=== PATIENT | male | born 1990 | race Caucasian/White ===

== ENCOUNTER 2022-05-23 11:22 | Emergency (ER) | payer OTHER, SELFPAY ==
[2022-05-23 11:22] VITALS: BP 146/86; PULSE 110; RESP 20; TEMP 36.6; O2SAT 98; BMI 39.9
--- NOTE | 2022-05-23 11:34 | PC.NURSE ---
PT SITTING ON SIDE OF STRETCHER, FAMILY AT BEDSIDE. DENIES NEEDS AT THIS TIME
--- NOTE | 2022-05-23 11:40 | PC.NURSE ---
ED MD AT BEDSIDE TO EVALUATE PT
--- NOTE | 2022-05-23 11:44 | PC.NURSE ---
SHARATH ZEPEDA CONSULTING AT THIS TIME
--- NOTE | 2022-05-23 11:47 | XR_ITS ---
FINAL REPORT CLINICAL HISTORY: dog bite FINDINGS: AP, lateral and oblique views of the right hand were obtained. There is no prior exam for comparison. There is no acute fracture or dislocation. The joint spaces are preserved. No foreign body is identified. There is a diffuse soft tissue edema, favor cellulitis. IMPRESSION: No acute osseous abnormality of the right hand. Few soft tissue edema, favor cellulitis. Reviewed, Interpreted and Dictated by Yelena Lawler MD Transcribed by Мария Adamson Authenticated and [facility]
--- NOTE | 2022-05-23 12:01 | PC.NURSE ---
0705 ED MD AT BEDSIDE, UPDATING PT AND FAMILY ON POC
--- NOTE | 2022-05-23 12:03 | PC.NURSE ---
PT TO XR
--- NOTE | 2022-05-23 12:08 | PC.NURSE ---
1208, RETURNED FROM XR
--- NOTE | 2022-05-23 12:20 | PC.NURSE ---
1220 PT UPDATED ON POC, ABX STARTED. PT WITHOUT NEEDS AT THIS TIME
[2022-05-23 12:26] LABS: Chloride 105 mmol/L (98-107); Potassium 4.5 mmoL/L (3.5-5.1); Sodium 139 mmol/L (136-145)
[2022-05-23 12:27] LABS: Basophils # 0.1 K/mm3 (0-0.2); Basophils % 0.5 % (0.1-2.0); Eosinophils # 0.2 K/mm3 (0.0-0.4); Eosinophils % 1.5 % (0.1-12.0); Lymphocytes # 2.4 K/mm3 (0.7-4.5); Lymphocytes % 23.9 % (10-50); Mean Corpuscular HGB Conc 35.4 g/dL (31.8-35.4); Mean Corpuscular Hemoglobin 31.8 pg (27.0-31.2); Mean Corpuscular Volume 89.8 fl (80-94); Mean Platelet Volume 7.5 fl (7.4-10.4); Monocytes % 10.6 % (1.7-9.3); Neutrophils # 6.3 K/mm3 (1.8-7.8); Neutrophils % 63.5 % (37.0-80.0); Platelet Count 269 K/mm3 (142-424); Red Blood Count 5.35 M/mm3 (4.60-6.20); Red Cell Distribution Width 13.5 % (11.5-17.5); White Blood Count 9.8 K/mm3 (4.8-10.8)
[2022-05-23 12:29] LABS: Anion Gap 9.5 mEq/L (5-15); Blood Urea Nitrogen 10 mg/dl (9-20); Calcium 8.8 mg/dl (8.4-10.2); Carbon Dioxide 29 mmol/L (22.0-30.0); Creatinine Clearance Estimated 167 mL/min (50-200); Estimated Glomerular Filt Rate 78 ml/min (>60); GFR (African American) 94 ML/MIN (>60); Glucose 116 mg/dl (74-100)
--- NOTE | 2022-05-23 12:30 | PC.NURSE ---
CONSENT SIGNED FOR TDDANILO
--- NOTE | 2022-05-23 12:33 | PC.NURSE ---
dog bite form faxed to [facility] at this time.
--- NOTE | 2022-05-23 12:41 | PC.NURSE ---
rounded on pt, sitting on bed with no needs at this time, family at bs
[2022-05-23 13:01] VITALS: BP 132/91; PULSE 83; O2SAT 96
[2022-05-23 13:03] LABS: Erythrocyte Sedimentation Rate 6 mm/hr (0-15)
--- NOTE | 2022-05-23 13:03 | PC.NURSE ---
called [facility] for ER Doctor John,talked to Jayson, She advised us to powershare his images. and they would call us back as soon as they looked at them
--- NOTE | 2022-05-23 13:05 | PC.NURSE ---
called radiology and asked them to powershare images to [facility]
[2022-05-23 13:30] VITALS: BP 127/91; PULSE 86; O2SAT 99
--- NOTE | 2022-05-23 13:30 | PC.NURSE ---
ROUNDED ON PT, TOLERATING IV ABX, FAMILY AT BEDSIDE. DENIES NEEDS AT THIS TIME
--- NOTE | 2022-05-23 13:39 | PC.NURSE ---
HARRY ZEPEDA speaking with dr. calhoun with hand service at at this time
--- NOTE | 2022-05-23 13:44 | PC.NURSE ---
ER speaking with ER attending at [facility] at this time
--- NOTE | 2022-05-23 13:45 | PC.NURSE ---
ED MD AT BEDSIDE TO UPDATE PT ON POC, TRANSFER TO [facility] FOR FURTHER CARE
--- NOTE | 2022-05-23 13:48 | HMH.EDANIB ---
ED Disposition Clinical Impression: Bite by animal, Infectious tenosynovitis Disposition: Xfer Short-Term Hosp Condition on Discharge: Good Instructions: Animal Bites Additional Instructions: Go directly to the [facility] emergency department for further evaluation Referrals: Provider,Referral, [Primary Care Provider] - Forms: Transfer Record - ED - Critical Care Critical Care Time: No Attestation: On 05/23/22, the high probability of a clinically significant, sudden or life threatening deterioration of the following system(s) required my full and direct attention, intervention and personal management. The time I documented below is in addition to time spent performing reported procedures but includes the following listed in this critical care notation. Medical Decision Making - Medical Records Medical records reviewed: Yes: I reviewed the patient's medical records. - Brigido Inquiry Pt receiving controlled substance: No Brigido was queried for this patient: No Vital Signs: 05/23/22 11:22 05/23/22 13:01 05/23/22 13:30 Temperature 97.9 F Temperature Source Oral Pulse Rate 83 86 Pulse Rate [Radial] 110 H Respiratory Rate 20 Blood Pressure 132/91 H 127/91 H Blood Pressure [Right Arm] 146/86 H Blood Pressure Mean 104 103 Blood Pressure Mean [Right Arm] 106 Blood Pressure Source [Right Arm] Automatic Cuff Blood Pressure Position [Right Arm] Sitting 02 Sat by Pulse Oximetry 98 96 99 Oxygen Delivery Method Room Air 05/23/22 14:00 Temperature Temperature Source Pulse Rate 82 Pulse Rate [Radial] Respiratory Rate Blood Pressure 114/84 Blood Pressure [Right Arm] Blood Pressure Mean 94 Blood Pressure Mean [Right Arm] Blood Pressure Source [Right Arm] Blood Pressure Position [Right Arm] 02 Sat by Pulse Oximetry Oxygen Delivery Method - Lab Data Lab Results 05/23/22 11:05: WBC 9.8, RBC 5.35, Hgb 17.0, Hct 48.0, MCV 89.8, MCH 31.8 H, MCHC 35.4, RDW 13.5, Plt Count 269, MPV 7.5, Neut % (Auto) 63.5, Lymph % (Auto) 23.9, [place] % (Auto) 10.6 H, Eos % (Auto) 1.5, Baso % (Auto) 0.5, Neut # (Auto) 6.3, Lymph # (Auto) 2.4, [place] # (Auto) 1.0, Eos # (Auto) 0.2, Baso # (Auto) 0.1, ESR 6 05/23/22 11:05: C-Reactive Protein 47.0 H 05/23/22 11:05: Sodium 139, Potassium 4.5, Chloride 105, Carbon Dioxide 29, Anion Gap 9.5, BUN 10, Creatinine 1.10, Estimated Creat Clear 167, Estimated GFR 78, Est GFR ( Amer) 94, Glucose 116 H, Calcium 8.8 Result diagrams: 05/23/22 11:05 05/23/22 11:05 Orders (Tests/Meds): ED MEDICATIONS Generic Name Dose Route Start Last Admin Trade Name Freq PRN Reason Stop Dose Admin Ampicillin Sodium/Sulbactam 100 mls @ 200 mls/hr 05/23/22 12:00 05/23/22 12:20 Sodium 3 gm/ Sodium Chloride IV 06/06/22 11:59 200 mls/hr Q6H KALPESH Administration Sodium Chloride 10 ml 05/23/22 12:00 Sodium Chloride 0.9% 10ml Flush Syringe IV 06/22/22 11:59 NEEDED PRN Maintain IV Site Discontinued Medications Generic Name Dose Route Start Last Admin Trade Name Freq PRN Reason Stop Dose Admin Vancomycin HCl 2,500 mg/ 250 mls @ 125 mls/hr 05/23/22 13:00 05/23/22 12:54 Sodium Chloride IV 05/23/22 14:59 125 mls/hr ONCE ONE Administration Tetanus/Reduced Diphtheria/Acell Pertussis 0.5 ml 05/23/22 11:49 05/23/22 12:50 Tet/Diphth/Pert-Adult 0.5ml Syringe IM 05/23/22 11:50 0.5 ml .ONCE ONE Administration Medical Decision Narrative: And reviewed is a 32-year-old male who presents with a dog bite to the right hand. Hemodynamically stable and nontoxic-appearing. His physical exam is pertinent for substantial erythema and swelling to the dorsal aspect of his right hand. He does have also pain with passive flexion as well as tenderness over his second finger. These are all concerning findings of infectious tenosynovitis. He was started on vancomycin and Unasyn for antibiotic coverage. An x-ray was performed which only sh
--- NOTE | 2022-05-23 13:51 | PC.NURSE ---
pt accepted [facility] , per ER pt can transport via private vehicle after antibiotics are finished
[2022-05-23 14:00] VITALS: BP 114/84; PULSE 82
--- NOTE | 2022-05-23 15:33 | PC.NURSE ---
report called to NAZ wilcox at [facility] at this time.
--- NOTE | 2022-05-23 16:00 | PC.NURSE ---
telfa and coban dressing placed on R hand
[2022-05-23 16:32] VITALS: BP 114/84; PULSE 82; RESP 20; TEMP 36.6; O2SAT 98
== END 2022-05-23 16:30 | disposition short-term general hospital (02) ==
PROVIDERS: Emergency Provider Student in an Organized Health Care Education/Training Program
DX: M65.141 Other infective (teno)synovitis, right hand (principal); S61.451A Open bite of right hand, initial encounter; W54.0XXA Bitten by dog, initial encounter; Z23 Encounter for immunization
CPT/HCPCS: 73130; 80048; 85025; 85651; 86140; 90471; 90715; 96365; 96366; 96367; 99284; J3370

== ENCOUNTER 2025-02-28 18:27 | Inpatient (IN) | payer OTHER, SELFPAY ==
[2025-02-28] VITALS (14 sets, daily range): BP systolic 133–167; BP diastolic 73–95; PULSE 85–114; RESP 16–32; TEMP 36.2–38; O2SAT 93–98; BMI 40.6; BMI 43.4
--- NOTE | 2025-02-28 18:40 | ED_ITS ---
<Statement entered by Salima Crespo MD - 02/28/25 19:40> I was consulted by the YA, and we discussed the complexity of the problems being addressed. I approved the treatment and management plan for this patient's care in the emergency department, thus performing a substantive portion of the medical decision making. Salima Crespo MD, KOMAL, FACEP Discharge Plan Disposition Chief Complaint: Abdominal Pain Referrals Follow up/Referrals: Provider,Referral, [Primary Care Provider] - See instructions Instructions Patient Instructions: DI for Acute Abdominal Pain Print Language Print Language: Portuguese Discharge ED Provider: Salima Crespo General Adult HPI General Chief complaint: Abdominal Pain Stated complaint: Right side abdominal pain,nausea Time Seen by Provider: 02/28/25 18:40 History of Present Illness HPI narrative: Patient presents for evaluation of acute abdominal pain. Patient states that he had acute onset of abdominal pain located centrally that started yesterday while at work. It is not abated and approximately 1 hour prior to presentation he felt like something cut him across the abdomen. He reports nausea vomiting inability to tolerate oral intake as passing stool and flatus denies chest pain shortness of breath hemoptysis hematochezia melena hematemesis hematuria. He has never had any abdominal surgeries. Related Data Allergies Allergy/AdvReac Type Severity Reaction Status Date / Time No Known Allergies Allergy Verified 05/23/22 11:58 [facility] Disclaimer: The information contained in this section may have been updated after the patient was seen, as this information can be updated by other users. Social History Smoking Status: Current every day smoker alcohol intake: never current occupational status: employed Travel in the last 8 weeks?: None Other Medical History Have you received the Flu Vaccine for this season: No Have you received the Pneumonia Vaccine: No ROS Obtained: Yes Systems reviewed as appropriate & no additional complaints except as documented Physical Exam General General appearance: alert Respiratory Respiratory exam: Present normal lung sounds bilaterally Cardiovascular Cardiovascular exam: Present regular rate Neurological Exam Neurological exam: Present alert and oriented X3 Medical Decision Making Medical Records Medical records reviewed: Yes I reviewed the patient's medical records. Screening: Per USPSTF and CDC recommendations, given the prevalence of disease in our region, it is our hospital?s policy to screen for HIV and viral Hepatitis for all patients aged 18 and over and those with ongoing risk factors. Brigido Inquiry Pt receiving controlled substance: No Vital Signs: 02/28/25 18:40 Temperature 98.1 F Temperature Source Oral Pulse Rate [Radial] 85 Respiratory Rate 18 Blood Pressure [Right Arm] 133/73 Blood Pressure Mean [Right Arm] 93 Blood Pressure Source [Right Arm] Automatic Cuff Blood Pressure Position [Right Arm] Sitting 02 Sat by Pulse Oximetry 98 Oxygen Delivery Method Room Air Lab Data Lab results reviewed: Yes I reviewed the patient's lab results. Lab Results 02/28/25 18:44: WBC 20.3 H*, RBC 5.13, Hgb 15.4, Hct 44.5, MCV 86.7, MCH 30.0, MCHC 34.6, RDW 15.0, Plt Count 313, MPV 9.6, Neut % (Auto) 74.9, Lymph % (Auto) 13.7, [place] % (Auto) 9.7 H, Eos % (Auto) 0.9, Baso % (Auto) 0.3, Neut # (Auto) 15.2 H, Lymph # (Auto) 2.8, [place] # (Auto) 2.0 H, Eos # (Auto) 0.2, Baso # (Auto) 0.1, Total Counted 100, Neutrophils % (Manual) 75, Lymphocytes % (Manual) 16, Monocytes % (Manual) 7, Eosinophils % (Manual) 2, Platelet Estimate Normal, RBC Morphology Normal, PT 10.7, INR 0.95, Sodium 137, Potassium 4.5, Chloride 108 H, Carbon Dioxide 24, Anion Gap 9.5, BUN 17, Creatinine 1.10, Estimated Creat Clear 167, Estimated GFR 77, Est GFR ( Amer) 93, Glucose 123 H, Lactate 1.0, Calcium 9.0, Magnesium 2.0, Total Bilirubin 0.7, AST 30, ALT 38, Alkaline Phosphatase 64, Total Protein 7.4, Albumin 4.2, Globulin 3.2, Albumin/Globulin Ratio 1.3, Lipase 97, Procalcitonin 0.088 02/28/25 18:44 02/28/25 18:44 Orders (Tests/Meds): ED MEDICATIONS Generic Name Dose Route Start Last Admin Trade Name Freq PRN Reason Stop Dose Admin Sodium Chloride 1,000 mls @ 999 mls/hr 02/28/25 18:44 02/28/25 18:48 Sod Chlor 0.9% 1000ml Bag IV 02/28/25 19:44 999 mls/hr .Q1H1M ONE Administration Piperacillin Sod/Tazobactam 50 mls @ 100 mls/hr 02/28/25 19:32 Sod 3.375 gm/ Sodium Chloride IV 02/28/25 20:01 ONCE ONE Discontinued Medications Generic Name Dose Route Start Last Admin Trade Name Leno PRN Reason Stop Dose Admin Acetaminophen 1,000 mg 02/28/25 18:44 02/28/25 19:18 Acetaminophen 1,000mg/100ml Vial IV 02/28/25 18:45 1,000 mg ONCE ONE Administration Hydromorphone HCl 1 mg 02/28/25 18:44 02/28/25 18:48 Hydromorphone 2mg/Ml Syringe IV 02/28/25 18:45 1 mg ONCE ONE Administration Iopamidol 75 ml 02/28/25 18:59 02/28/25 19:02 Iopamidol-370 (76%);100ml Bottle IV 02/28/25 19:00 75 ml ONCE ONE Administration Ketorolac Tromethamine 15 mg 02/28/25 18:44 02/28/25 19:17 Ketorolac 30mg/Ml Vial IV 02/28/25 18:45 15 mg ONCE ONE Administration Ondansetron HCl 4 mg 02/28/25 18:44 02/28/25 18:47 Ondansetron 4mg/2ml Vial IV 02/28/25 18:45 4 mg ONCE ONE Administration Sodium Chloride 10 ml 02/28/25 18:59 02/28/25 19:02 Sodium Chloride 0.9% 10ml Syr (Rad Only) IV 02/28/25 19:00 10 ml ONCE ONE Administration ORDERS Category Date Time Status CT abdomen pelvis w con Stat Cat Scan 02/28/25 18:44 Taken CBC w/Auto Diff [Complete Blood Count Auto Diff] Stat Lab 02/28/25 18:44 Completed CMP [Comprehensive Metabolic Panel] Stat Lab 02/28/25 18:44 Completed HIV Combo Stat Lab 02/28/25 18:44 Received Hepatitis C Ab Qual. W/ RFX Stat Lab 02/28/25 18:44 Received INR [Prothrombin Time INR] Stat Lab 02/28/25 18:44 Completed Lactic Acid Stat Lab 02/28/25 18:44 Completed Lipase Stat Lab 02/28/25 18:44 Completed Magnesium Stat Lab 02/28/25 18:44 Completed Procalcitonin Stat Lab 02/28/25 18:44 Completed Blood Culture Stat Micro 02/28/25 19:11 Ordered Tissue Perfus/Sepsis Re-Eval Sepsis Re-Evaluation Performed: Yes Date Performed: 02/28/25 Time Performed: 19:09 Medical Decision Narrative: In summary patient is a 34-year-old male who presents to the emergency department for evaluation of acute abdominal pain. Patient is essentially hemodynamically stable with a blood pressure 133/73 pulse 85 normal sinus rhythm on the bedside monitor breathing 18 times a minute satting at 98% on room air upon arrival, afebrile currently at 98.1. Physical exam is remarkable for a well-nourished well-developed overweight 34-year-old gentleman who appears to be in a significant amount of pain. Physical exam is remarkable for exquisitely tender to palpation abdomen particularly on the right side to even light pressure. He is guarding. Left side is less tender and does not cause rebound tenderness on the contralateral side on palpation. Differential diagnosis includes acute abdomen with cholecystitis pancreatitis acute appendicitis bowel obstruction etc. Initial workup will be conducted with hematologic labs urinalysis blood cultures CT scan abdomen pelvis. Initial interventions include crystalloid bolus Toradol Tylenol Zofran. Initial workup reviewed by me shows that his white count is 20.3 H&H are normal absolute neutrophil count is 15.2, procalcitonin is 0.088 and my informal trepidation of CT scan abdomen pelvis shows foci of free air in the right abdomen underneath the rectus and a very thickened small bowel loop adjacent prior to radiology read. Please see final read for formal interpretation. Given this blood cultures were drawn and patient was started on Zosyn. I had interactive discussion with Dr. Weber of general surgery who is on his way into take the patient to the operating room. I also had interact discussion with hospital medicine letting him know the patient will be admitted postoperatively. Critical Care Critical Care Time Critical Care Time: Yes Attestation: On 02/28/25, the high probability of a clinically significant, sudden or life threatening deterioration of the following system(s) required my full and direct attention, intervention and personal management. The time I documented below is in addition to time spent performing reported procedures but includes the following listed in this critical care notation. Total Time Total Critical Care Time: 35
--- NOTE | 2025-02-28 18:40 | ECG_ITS ---
APPROVED REPORT Exam: Resting ECG HR:97 bpm ECG Measurements Heart Rate 97 AXES DE 163 P 48 QRSd 98 QRS 91 QT 312 T 47 QTc 367 Conclusion SINUS RHYTHM BORDERLINE RIGHT AXIS DEVIATION [QRS AXIS > 90] BORDERLINE ECG UNCONFIRMED REPORT Electronically signed by : Jordy Crespo, 02/28/2025 22:58:49
--- NOTE | 2025-02-28 18:44 | CT_ITS ---
PROCEDURE INFORMATION: Exam: CT Abdomen And Pelvis With Contrast Exam date and time: 02/28/2025 6:56 PM Age: 34 years old Clinical indication: Abdominal pain; Additional info: Acute abdominal pain TECHNIQUE: Imaging protocol: Computed tomography of the abdomen and pelvis with contrast. Radiation optimization: All CT scans at this facility use at least one of these dose optimization techniques: automated exposure control; mA and/or kV adjustment per patient size (includes targeted exams where dose is matched to clinical indication); or iterative reconstruction. Contrast material: ISOVUE; Contrast volume: 75 ml; Contrast route: IV; COMPARISON: No relevant prior studies available. FINDINGS: Diaphragm: Small to moderate-sized hiatal hernia. Liver: Normal. No mass. Gallbladder and biliary ducts: Normal. No calcified stones. No ductal dilation. Pancreas: Normal. No ductal dilation. Spleen: Normal. No splenomegaly. Adrenal glands: Normal. No mass. Kidneys and ureters: Normal. No hydronephrosis. Stomach and bowel: There is an outpouching of the small bowel in the right side of the abdomen example images 64 through 75 series 2. There is surrounding inflammation and free air. Dilated segments of small bowel in the left side of the abdomen most likely represent mild ileus. Appendix: Unremarkable appendix. Intraperitoneal space: Small amount of pneumoperitoneum. Vasculature: Unremarkable. No abdominal aortic aneurysm. Lymph nodes: Unremarkable. No enlarged lymph nodes. Urinary bladder: Unremarkable as visualized. Reproductive: Unremarkable as visualized. Bones/joints: Unremarkable. No acute fracture. Soft tissues: Unremarkable. IMPRESSION: 1. There is an outpouching of the small bowel in the right side of the abdomen example images 64 through 75 series 2. There is surrounding inflammation and free air. This is favored to be perforated acute Meckel's diverticulitis. No abscess. 2. THIS REPORT CONTAINS FINDINGS THAT MAY BE CRITICAL TO PATIENT CARE. The findings were verbally communicated via telephone conference with Dr. Crespo at 7:36 PM EDT on 02/28/2025. The findings were acknowledged and understood.
[2025-02-28] MEDS: ONDANSETRON 4MG/2ML VIAL 4 MG IV (18:47)
[2025-02-28] MEDS: HYDROMORPHONE 2MG/ML SYRINGE 1 MG IV (18:48)
[2025-02-28] MEDS: 0.9 % SODIUM CHLORIDE 1000ML 1,000 ML 999 ML IV (18:48)
[2025-02-28 18:54] LABS: Basophils # 0.1 K/mm3 (0-0.2); Basophils % 0.3 % (0.1-2.0); Eosinophils # 0.2 Kmm3 (0.0-0.4); Eosinophils % 0.9 % (0.1-12.0); Hematocrit 44.5 % (42.0-52.0); Hemoglobin 15.4 g/dL (14.1-18.0); Lymphocytes # 2.8 K/mm3 (0.7-4.5); Lymphocytes % 13.7 % (10-50); Mean Corpuscular HGB Conc 34.6 g/dL (31.8-35.4); Mean Corpuscular Volume 86.7 fl (80-94); Mean Platelet Volume 9.6 fl (7.4-10.4); Monocytes % 9.7 % (1.7-9.3); Neutrophils # 15.2 K/mm3 (1.8-7.8); Neutrophils % 74.9 % (37.0-80.0); Nucleated Red Blood Cells # 0 10^3/uL; Nucleated Red Blood Cells % 0 %; Platelet Count 313 K/mm3 (142-424); Red Blood Count 5.13 M/mm3 (4.60-6.20); Red Cell Distribution Width-SD 48.1 fL; White Blood Count 20.3 K/mm3 (4.8-10.8)
[2025-02-28 19:00] LABS: MANUAL DIFFERENTIAL MANUAL DIFFERENTIAL (MANUAL DIFF)
[2025-02-28 19:01] LABS: INR 0.95 (0.9-1.1); Prothrombin Time 10.7 seconds (10.1-12.5)
[2025-02-28 19:02] LABS: Alanine Aminotransferase 38 U/L (12-78); Albumin Level 4.2 g/dl (3.5-5.0); Albumin/Globulin Ratio 1.3 (1.1-1.8); Alkaline Phosphatase 64 U/L (38-126); Anion Gap 9.5 mEq/L (5-15); Aspartate Amino Transferase 30 U/L (17-59); Bilirubin,Total 0.7 mg/dl (0.2-1.3); Blood Urea Nitrogen 17 mg/dl (9-20); Carbon Dioxide 24 mmol/L (22.0-30.0); Chloride 108 mmol/L (98-107); Creatinine Clearance Estimated 167 mL/min (50-200); Estimated Glomerular Filt Rate 77 ml/min (>60); GFR (African American) 93 ML/MIN (>60); Globulin 3.2 g/dL (1.3-3.2); Glucose 123 mg/dl (74-100); Lipase 97 U/L (23-300); Potassium 4.5 mmoL/L (3.5-5.1); Sodium 137 mmol/L (136-145); Total Protein,Serum 7.4 g/dl (6.3-8.2)
[2025-02-28] MEDS: IOPAMIDOL-370 (76%);100ML BOTTLE 75 ML IV (19:02)
[2025-02-28] MEDS: SODIUM CHLORIDE 0.9% 10ML SYR (RAD ONLY) 10 ML IV (19:02)
[2025-02-28] MEDS: KETOROLAC 30MG/ML VIAL 15 MG IV (19:17)
[2025-02-28 19:18] LABS: Procalcitonin 0.088 ng/mL (0.0-2.0)
[2025-02-28] MEDS: ACETAMINOPHEN 1,000MG/100ML VIAL 1000 MG IV (19:18)
[2025-02-28 19:29] LABS: Eosinophils % 2 % (0-3); Lymphocytes % 16 % (10-50); Monocytes % 7 % (2-9); Neutrophils % 75 % (42-76); Platelet Estimate Normal; RBC Morphology Normal; Total Cells Counted 100
[2025-02-28] MEDS: PIPERACILLIN/TAZO 3.375 GM in 0.9 % SODIUM CHLORIDE 50 ML IV (19:34)
--- NOTE | 2025-02-28 19:52 | PC.NURSE ---
Dr Weber talking to pt about surgery
--- NOTE | 2025-02-28 19:53 | PC.NURSE ---
Sx team paged at [phone]. Taras returned call at 192. Umm returned call at [phone]. Corrine returned call at [phone].
[2025-02-28 20:01] LABS: HIV Combo NEGATIVE (Negative)
--- NOTE | 2025-02-28 20:08 | EXP.GEN.HP ---
HPI HPI HPI: This is a 34-year-old gentleman who presented to the emergency department with increasing abdominal pain. See HPI narrative and medical decision making forwarded below from emergency department evaluation. Forwarded from emergency department evaluation: HPI narrative: Patient presents for evaluation of acute abdominal pain. Patient states that he had acute onset of abdominal pain located centrally that started yesterday while at work. It is not abated and approximately 1 hour prior to presentation he felt like something cut him across the abdomen. He reports nausea vomiting inability to tolerate oral intake as passing stool and flatus denies chest pain shortness of breath hemoptysis hematochezia melena hematemesis hematuria. He has never had any abdominal surgeries. Medical Decision Narrative: In summary patient is a 34-year-old male who presents to the emergency department for evaluation of acute abdominal pain. Patient is essentially hemodynamically stable with a blood pressure 133/73 pulse 85 normal sinus rhythm on the bedside monitor breathing 18 times a minute satting at 98% on room air upon arrival, afebrile currently at 98.1. Physical exam is remarkable for a well-nourished well-developed overweight 34-year-old gentleman who appears to be in a significant amount of pain. Physical exam is remarkable for exquisitely tender to palpation abdomen particularly on the right side to even light pressure. He is guarding. Left side is less tender and does not cause rebound tenderness on the contralateral side on palpation. Differential diagnosis includes acute abdomen with cholecystitis pancreatitis acute appendicitis bowel obstruction etc. Initial workup will be conducted with hematologic labs urinalysis blood cultures CT scan abdomen pelvis. Initial interventions include crystalloid bolus Toradol Tylenol Zofran. Initial workup reviewed by me shows that his white count is 20.3 H&H are normal absolute neutrophil count is 15.2, procalcitonin is 0.088 and my informal trepidation of CT scan abdomen pelvis shows foci of free air in the right abdomen underneath the rectus and a very thickened small bowel loop adjacent prior to radiology read. Please see final read for formal interpretation. Given this blood cultures were drawn and patient was started on Zosyn. I had interactive discussion with Dr. Weber of general surgery who is on his way into take the patient to the operating room. I also had interact discussion with hospital medicine letting him know the patient will be admitted postoperatively. [facility] Disclaimer: The information contained in this section may have been updated after the patient was seen, as this information can be updated by other users. Medical History (Updated 02/28/25 @ 20:12 by Man Weber MD) Infectious tenosynovitis Social History (Updated 02/28/25 @ 19:34 by MONTSE Munroe) Smoking Status: Current every day smoker alcohol intake: never substance use type: denies use current occupational status: employed Travel in the last 8 weeks?: None Other Medical History Have you received the Flu Vaccine for this season: No Have you received the Pneumonia Vaccine: No Review of Systems Review of Systems Review of systems:: pertinent systems reviewed and negative unless documented below Constitutional Constitutional: Reports as per HPI ENT Ears, Nose, Mouth, and Throat: Denies dizziness *Cardiovascular Cardiovascular: Denies dyspnea *Respiratory Respiratory: Denies dyspnea *Gastrointestinal Gastrointestinal: Reports as per HPI *Neurologic Neurologic: Denies dizziness Meds Home Medications and Allergies New Prescriptions to Start Prescriptions: Allergies Allergy/AdvReac Type Severity Reaction Status Date / Time No Known Allergies Allergy Verified 05/23/22 11:58 Exam Data for Last 24 hours Vital signs and Labs for Last 24 Hours: Temp Pulse Resp BP Pulse Ox O2 Del Method 98.3 F 107 H 30 H 148/81 H 97 Room Air 02/28/25 20:02 02/28/25 20:02 02/28/25 20:02 02/28/25 20:02 02/28/25 19:41 02/28/25 20:02 Laboratory Results - last 24 hr 02/28/25 18:44: WBC 20.3 H*, RBC 5.13, Hgb 15.4, Hct 44.5, MCV 86.7, MCH 30.0, MCHC 34.6, RDW 15.0, Plt Count 313, MPV 9.6, Neut % (Auto) 74.9, Lymph % (Auto) 13.7, [place] % (Auto) 9.7 H, Eos % (Auto) 0.9, Baso % (Auto) 0.3, Neut # (Auto) 15.2 H, Lymph # (Auto) 2.8, [place] # (Auto) 2.0 H, Eos # (Auto) 0.2, Baso # (Auto) 0.1, Total Counted 100, Neutrophils % (Manual) 75, Lymphocytes % (Manual) 16, Monocytes % (Manual) 7, Eosinophils % (Manual) 2, Platelet Estimate Normal, RBC Morphology Normal, PT 10.7, INR 0.95, Sodium 137, Potassium 4.5, Chloride 108 H, Carbon Dioxide 24, Anion Gap 9.5, BUN 17, Creatinine 1.10, Estimated Creat Clear 167, Estimated GFR 77, Est GFR ( Amer) 93, Glucose 123 H, Lactate 1.0, Calcium 9.0, Magnesium 2.0, Total Bilirubin 0.7, AST 30, ALT 38, Alkaline Phosphatase 64, Total Protein 7.4, Albumin 4.2, Globulin 3.2, Albumin/Globulin Ratio 1.3, Lipase 97, Procalcitonin 0.088, HIV Ag/Ab Combo Qual Negative I & O for Last 24 hours: Intake & Output 02/26/25 02/27/25 02/28/25 03/01/25 11:59 11:59 11:59 11:59 Weight 275 lb Constitutional Constitutional: no acute distress *Routine HEENT Exam Head: Present normocephalic Eye: Present EOMI ENT: Present mucous membranes moist *Routine Neck Exam Neck: Present full ROM *Routine Respiratory Exam Respiratory: Absent respiratory distress *Routine Cardiovascular Exam Cardiovascular: Absent tachycardia *Routine Abdominal Exam Abdominal: Present tenderness and guarding *Routine Rectal Exam Rectal:: deferred *Routine Genitalia Exam Genitalia:: deferred *Routine Extremities Exam Extremities: Present full ROM *Routine Skin Exam Skin: Absent erythema *Routine Neurological Exam Neurological: Present alert Results Results Lab Results Last 24 Hours:: Laboratory Results - last 24 hr 02/28/25 18:44: WBC 20.3 H*, RBC 5.13, Hgb 15.4, Hct 44.5, MCV 86.7, MCH 30.0, MCHC 34.6, RDW 15.0, Plt Count 313, MPV 9.6, Neut % (Auto) 74.9, Lymph % (Auto) 13.7, [place] % (Auto) 9.7 H, Eos % (Auto) 0.9, Baso % (Auto) 0.3, Neut # (Auto) 15.2 H, Lymph # (Auto) 2.8, [place] # (Auto) 2.0 H, Eos # (Auto) 0.2, Baso # (Auto) 0.1, Total Counted 100, Neutrophils % (Manual) 75, Lymphocytes % (Manual) 16, Monocytes % (Manual) 7, Eosinophils % (Manual) 2, Platelet Estimate Normal, RBC Morphology Normal, PT 10.7, INR 0.95, Sodium 137, Potassium 4.5, Chloride 108 H, Carbon Dioxide 24, Anion Gap 9.5, BUN 17, Creatinine 1.10, Estimated Creat Clear 167, Estimated GFR 77, Est GFR ( Amer) 93, Glucose 123 H, Lactate 1.0, Calcium 9.0, Magnesium 2.0, Total Bilirubin 0.7, AST 30, ALT 38, Alkaline Phosphatase 64, Total Protein 7.4, Albumin 4.2, Globulin 3.2, Albumin/Globulin Ratio 1.3, Lipase 97, Procalcitonin 0.088, HIV Ag/Ab Combo Qual Negative CT scan - abdomen: report reviewed and image reviewed CT scan - pelvis: report reviewed and image reviewed Assessment and Plan *Assessment and plan (1) Intra-abdominal free air of unknown etiology: Problem Comment: Most likely small bowel perforation (Meckel's, etc.) Status: Acute Category: Medical Code(s): K66.8 - Other specified disorders of peritoneum (2) Acute abdomen: Status: Acute Category: Medical Code(s): R10.0 - Acute abdomen (3) Severe sepsis without septic shock: Status: Acute Category: Medical Code(s): A41.9 - Sepsis, unspecified organism; R65.20 - Severe sepsis without septic shock (4) BMI 40.0-44.9, adult: Status: Acute Category: Medical Code(s): Z68.41 - Body mass index [BMI] 40.0-44.9, adult Plan Continue current resuscitative measures as per initiated by emergency department He will be taken immediately to the operative suite for exploratory laparotomy/possible bowel resection I have discussed the risks and benefits including, but not limited to: Bleeding Infection Damage to surrounding tissue Inherent risks of sedation The patient agrees to proceed.
[2025-02-28 20:10] LABS: Hepatitis C Ab Qual. W/ RFX NEGATIVE (Negative)
--- NOTE | 2025-02-28 20:11 | P.PNANES_ITS ---
[facility] Disclaimer: The information contained in this section may have been updated after the patient was seen, as this information can be updated by other users. Social History (Updated 02/28/25 @ 19:34 by MONTSE Munroe) Smoking Status: Current every day smoker alcohol intake: never substance use type: denies use current occupational status: employed Travel in the last 8 weeks?: None [facility] Anesthesia Checklist Patient Identification Patient Identification: Arm Band Structural Data Admitted From: Home Planned Operative Procedure/s: Exploratory Laparotomy Consent for Planned Operative Procedure(s) Verified: Yes Verified Documents: Surgical Consent and History and Physical NPO Status Verified Time NPO: 16:30 (Liquids. Last solids 1300) Additional verifications Anesthesia Reactions: No Airway Assessment Mallampati Score:: Class II C-Spine Mobility Assessed: Yes TMJ Mobility Assessed: Yes Dentition: Good Dentition Anesthesia Plan Anesthesia Risk discussed: Yes Anesthesia Plan: Verified ASA Class: III (E) Anesthesia Type: General
[2025-02-28] MEDS: ERTAPENEM SODIUM 1 GM VIAL (20:20)
[2025-02-28] MEDS: 0.9 % SODIUM CHLORIDE 100 ML IV (20:20)
--- NOTE | 2025-02-28 22:31 | EXP.OP.NOTE ---
Date of procedure: 02/28/25 Pre-op Diagnosis:: Perforated hollow viscus Intra-abdominal free air Peritonitis Presumed perforated small bowel Meckel's diverticulum Post-op Diagnosis:: Perforated small bowel Meckel's diverticulum Procedure performed:: Exploratory laparotomy Partial small bowel resection with primary anastomosis Surgeon:: Man Weber MD INSTRUMENT ROOM TECHNICIAN:: Taras Ron Anesthesia: GETA Estimated blood loss (mL): 50 Operative findings:: Small bowel Meckel's diverticulum adhered to the right upper quadrant abdominal wall with perforation and surrounding drainage of succus Operative note:: After informed consent was obtained the patient was taken to the operating room and placed in the supine position. General anesthesia was induced and his abdomen was prepped and draped in a sterile fashion. An upper midline laparotomy incision was made. The abdomen was carefully entered with a combination of electrocautery, blunt dissection, and sharp dissection. Visual inspection and palpation confirmed a small bowel abnormality with tissue thickening and adherence to the anterior abdominal wall. The abnormality was brought into the operative field where confirmation of an obvious Meckel's diverticulum was noted. Surrounding succus was evacuated via suctioning. The small bowel/Meckel's diverticulum was carefully elevated. A transection site was made proximal and distal to the Meckel's diverticulum utilizing a linear stapler. The intervening mesentery was taken via the Enseal device. The small bowel/Meckel's diverticulum was passed off for pathologic evaluation. A side to side stapled anastomosis was completed utilizing the linear stapler. The common otomy was closed using a [place] stapler. The staple line was imbricated (including the crotch ). The mesenteric defect was closed with running Vicryl suture and the abdomen was thoroughly irrigated. No sign of injury or bleeding noted. No pockets of purulence noted. Fascia was closed with running #2 Novafil. Skin was then stapled and dressings were applied. The patient was transferred to recovery in stable condition. Condition: stable Disposition: PACU Specimens:: Small bowel/Meckel's diverticulum Complications:: No immediate
--- NOTE | 2025-02-28 22:46 | EXP.ANES.I ---
[facility] Anesthesia Record Part I Anesthesia Record I Intake, IV Amount: 2,300 Hydration: Adequate Estimated blood loss (mL): 50 Urine output (mL): 600 Blood Products used (#): none Blood Pressure: 156/81 SaO2: 93 Pulse Rate: 106 Airway Patency: Patent Respiratory Rate: 20 Temperature: 97.2 F Patient is:: Drowsy, Oral/Nasal airway and Stable Stable to PACU at:: 22:40
--- NOTE | 2025-02-28 23:06 | P.HP_ITS ---
<Statement entered by Jrody Burk MD - 03/01/25 08:07> Rounded on patient after nurse practitioner. Personally examined and interviewed patient. Agree with exam findings and care plan as documented. History of Present Illness *Admission Date: 02/28/25 *Reason for visit:: Abdominal pain *History of present illness: This is a 34-year-old male with past medical history of obesity and tobacco abuse who presents emergency department today with complaints of abdominal pain. He reports consistent abdominal pain that began today. States that it was generalized but significant to the right lower quadrant. He reports pain was consistent all day with acute worsening pain 1 hour prior to arrival. He reports nausea and vomiting with inability to tolerate oral intake. Denies any melena or bright red blood per rectum. Emergency Department notable for white blood cell count of 20. Stable vitals with low sinus tachycardia. CT imaging notable for outpouching of small bowel in the right side of the abdomen with inflammation and free air consistent with perforated acute Meckel's diverticulitis. Dr. Weber was consulted and patient was taken to the OR. He underwent exploratory laparotomy with small bowel resection with primary anastomosis. Postoperatively he is doing well NG tube in place, Juárez catheter in place. PATTERN FILER pump on board for pain management. Vital signs stable. [facility] Disclaimer: The information contained in this section may have been updated after the patient was seen, as this information can be updated by other users. Medical History (Updated 02/28/25 @ 23:30 by MARY Reyes) Infectious tenosynovitis Social History (Updated 02/28/25 @ 20:12 by Taras Velasquez CRNA) Smoking Status: Current every day smoker alcohol intake: never substance use type: denies use current occupational status: employed Travel in the last 8 weeks?: None Have you lived/traveled outside US in past 30 days?: No Contact w/someone who lives/traveled outside US past 30 days?: No Exposure to someone with infectious disease in past 14 days?: No Do you have a fever (greater than 100.4 F or 38 C)?: No Have you tested positive for COVID-19?: No Exposed to someone with COVID-19 in past 14 days?: No Do you have a sore throat?: No Do you have a cough?: No Do you have any weakness?: No Do you have any diarrhea?: No Are you experiencing any unusual bleeding?: No Do you have any muscle aches/pain?: No Do you have any abdominal pain?: Yes Are you experiencing loss of taste or smell?: No Other Medical History Have you received the Flu Vaccine for this season: No Have you received the Pneumonia Vaccine: No Review of Systems Review of Systems Review of systems:: pertinent systems reviewed and negative unless documented below Review of systems (narrative): Negative except for HPI ENT Ears, Nose, Mouth, and Throat: Denies dizziness *Neurologic Neurologic: Denies dizziness Meds Home Medications and Allergies New Prescriptions to Start Prescriptions: Allergies Allergy/AdvReac Type Severity Reaction Status Date / Time No Known Allergies Allergy Verified 05/23/22 11:58 Exam Data for Last 24 hours Vital signs and Labs for Last 24 Hours: Temp Pulse Resp BP Pulse Ox O2 Del Method 97.2 F L 106 H 20 156/81 H 97 Room Air 02/28/25 22:46 02/28/25 22:46 02/28/25 22:46 02/28/25 22:46 02/28/25 20:15 02/28/25 20:15 Laboratory Results - last 24 hr 02/28/25 18:44: WBC 20.3 H*, RBC 5.13, Hgb 15.4, Hct 44.5, MCV 86.7, MCH 30.0, MCHC 34.6, RDW 15.0, Plt Count 313, MPV 9.6, Neut % (Auto) 74.9, Lymph % (Auto) 13.7, [place] % (Auto) 9.7 H, Eos % (Auto) 0.9, Baso % (Auto) 0.3, Neut # (Auto) 15.2 H, Lymph # (Auto) 2.8, [place] # (Auto) 2.0 H, Eos # (Auto) 0.2, Baso # (Auto) 0.1, Total Counted 100, Neutrophils % (Manual) 75, Lymphocytes % (Manual) 16, Monocytes % (Manual) 7, Eosinophils % (Manual) 2, Platelet Estimate Normal, RBC Morphology Normal, PT 10.7, INR 0.95, Sodium 137, Potassium 4.5, Chloride 108 H, Carbon Dioxide 24, Anion Gap 9.5, BUN 17, Creatinine 1.10, Estimated Creat Clear 167, Estimated GFR 77, Est GFR ( Amer) 93, Glucose 123 H, Lactate 1.0, Calcium 9.0, Magnesium 2.0, Total Bilirubin 0.7, AST 30, ALT 38, Alkaline Phosphatase 64, Total Protein 7.4, Albumin 4.2, Globulin 3.2, Albumin/Globulin Ratio 1.3, Lipase 97, Procalcitonin 0.088, HCV Ab SHRUTI w/Rflx PCR Qn Negative, HIV Ag/Ab Combo Qual Negative I & O for Last 24 hours: Intake & Output 02/25/25 02/26/25 02/27/25 02/28/25 23:59 23:59 23:59 23:59 Intake Total 2300 / 2300 Balance 2300 / 2300 Weight 124.738 kg Constitutional Constitutional: no acute distress *Routine HEENT Exam Head: Present normocephalic Eye: Present EOMI and PERRL ENT: Present mucous membranes moist *Routine Neck Exam Neck: Present supple; Absent lymphadenopathy *Routine Respiratory Exam Respiratory: Present CTA bilaterally *Routine Cardiovascular Exam Cardiovascular: Present RRR *Routine Abdominal Exam Abdominal: Present tenderness (Generalized TTP), distended and surgical scars Comments: Ex lap incision, edges approximate NG tube in place *Routine Rectal Exam Rectal:: deferred *Routine Genitalia Exam Genitalia:: deferred *Routine Extremities Exam Extremities: Absent cyanosis, clubbing or edema *Routine Skin Exam Skin: Present warm; Absent rash *Routine Neurological Exam Neurological: Present alert and oriented X3 Assessment and Plan *Assessment and plan (1) Meckel's diverticulum perforation: Status: Acute Category: Medical Code(s): Q43.0 - Meckel's diverticulum (displaced) (hypertrophic) (2) Severe sepsis without septic shock: Status: Acute Category: Medical Code(s): A41.9 - Sepsis, unspecified organism; R65.20 - Severe sepsis without septic shock Plan #Meckel's diverticulum perforation #Severe sepsis Meet sepsis criteria for leukocytosis with white cell count of 20, tachycardia. Perforated diverticulum noted. Patient underwent exploratory laparotomy with small bowel resection and primary anastomosis Per Dr. Weber, continue NG tube, n.p.o. Juárez catheter Continue Zosyn Continue maintenance IV fluids PATTERN FILER pump for pain management #Pain management with parenteral controlled substances multimodal pain medication
--- NOTE | 2025-02-28 23:19 | SUR.PHASEI ---
2310- pt left in stable condition with kelvin aldana and kelvin baker. VSS, dressings CDI, family at bedside
[2025-02-28] MEDS: 0.9 % SODIUM CHLORIDE 1000ML 1,000 ML 125 ML IV (23:23)
[2025-02-28] MEDS: PIPERACILLIN/TAZO 4.5 GM in 0.9 % SODIUM CHLORIDE 100 ML IV (23:23)
[2025-02-28] MEDS: MORPHINE 10MG/ML 30ML PCA IV (23:26)
[2025-02-28 23:31] LABS: Microscopic,Cath URINE MICROSCOPIC (MICROSCOPIC)
[2025-02-28 23:46] LABS: Appearance,Urine/Cath CLEAR (Clear); Bilirubin,Cath Negative (Negative); Blood, Urine/Cath Negative (Negative); Color,Urine/Cath YELLOW (Yellow); Glucose,Urine/Cath (UA) Negative (Negative); Ketones,Urine/Cath Negative (Negative); Leukocyte Esterase,Cath Negative (Negative); Nitrate,Cath Negative (Negative); PH,Urine/Cath 5.5 (5.0-8.5); Protein,Urine/Cath Negative (Negative); Urobilinogen,Cath 0.2 EU/dl (0.2)
[2025-02-28 23:55] LABS: Bacteria,Urine/Cath TRACE /lpf
[2025-03-01] VITALS (24 sets, daily range): BP systolic 145–166; BP diastolic 76–101; PULSE 99–120; RESP 16–28; TEMP 36.6–37.4; O2SAT 89–98
[2025-03-01] MEDS: PIPERACILLIN/TAZO 4.5 GM in 0.9 % SODIUM CHLORIDE 100 ML IV ×4 (04:36→23:20)
--- NOTE | 2025-03-01 06:55 | PC.NURSE ---
Pt came up from post op after a ex laparotomy and small bowel repair. Pt received a mid line incision that is covered with 4x4s and tape. Pt has a 16f ng in the right nare its @60 at the nare.it is hooked to low wall suction. pt has a 16f watts cath in place. pt has a morphine administrative services officer pump 1mg q10min. Pt has received 15mg of morphine throughout the night. Pt is alert and oriented. pt rates his pain at an 8 and says its a stabbing pain. pts is now at bedside. pt has been instructed to use the incentive spirometer the best he can try and do 10 every hour.
[2025-03-01 07:59] LABS: Basophils % 0.1 % (0.1-2.0); Hematocrit 42.6 % (42.0-52.0); Hemoglobin 14.7 g/dL (14.1-18.0); Lymphocytes % 4.3 % (10-50); Mean Corpuscular HGB Conc 34.5 g/dL (31.8-35.4); Mean Corpuscular Hemoglobin 30.2 pg (27.0-31.2); Mean Corpuscular Volume 87.7 fl (80-94); Mean Platelet Volume 10.1 fl (7.4-10.4); Monocytes # 1.6 K/mm3 (0.1-1.0); Monocytes % 6.7 % (1.7-9.3); Neutrophils # 20.5 K/mm3 (1.8-7.8); Neutrophils % 88.4 % (37.0-80.0); Nucleated Red Blood Cells # 0 10^3/uL; Nucleated Red Blood Cells % 0 %; Platelet Count 256 K/mm3 (142-424); Red Blood Count 4.86 M/mm3 (4.60-6.20); Red Cell Distribution Width 15.3 % (11.5-17.5); White Blood Count 23.2 K/mm3 (4.8-10.8)
[2025-03-01 08:05] LABS: MANUAL DIFFERENTIAL MANUAL DIFFERENTIAL (MANUAL DIFF)
[2025-03-01 08:30] LABS: Chloride 108 mmol/L (98-107); Potassium 4.2 mmoL/L (3.5-5.1); Sodium 139 mmol/L (136-145)
[2025-03-01 08:33] LABS: Anion Gap 12.2 mEq/L (5-15); Blood Urea Nitrogen 13 mg/dl (9-20); Calcium 8.3 mg/dl (8.4-10.2); Carbon Dioxide 23 mmol/L (22.0-30.0); Creatinine Clearance Estimated 92 mL/min (50-200); Estimated Glomerular Filt Rate 77 ml/min (>60); GFR (African American) 93 ML/MIN (>60); Glucose 106 mg/dl (74-100)
[2025-03-01] MEDS: 0.9 % SODIUM CHLORIDE 1000ML 1,000 ML 125 ML IV ×2 (08:35→16:40)
--- NOTE | 2025-03-01 09:25 | EXP.SURG.PN ---
Subjective Patient reports: no new complaints Narrative: Resting Exam Data for Last 24 hours Vital signs and Labs for Last 24 Hours: Temp Pulse Resp BP Pulse Ox O2 Del Method O2 Flow Rate 99.4 F 105 H 18 145/91 H 94 L Nasal Cannula 2 03/01/25 08:00 03/01/25 06:30 03/01/25 06:30 03/01/25 06:30 03/01/25 06:30 03/01/25 09:20 03/01/25 09:20 Laboratory Results - last 24 hr 02/28/25 18:44: WBC 20.3 H*, RBC 5.13, Hgb 15.4, Hct 44.5, MCV 86.7, MCH 30.0, MCHC 34.6, RDW 15.0, Plt Count 313, MPV 9.6, Neut % (Auto) 74.9, Lymph % (Auto) 13.7, [place] % (Auto) 9.7 H, Eos % (Auto) 0.9, Baso % (Auto) 0.3, Neut # (Auto) 15.2 H, Lymph # (Auto) 2.8, [place] # (Auto) 2.0 H, Eos # (Auto) 0.2, Baso # (Auto) 0.1, Total Counted 100, Neutrophils % (Manual) 75, Lymphocytes % (Manual) 16, Monocytes % (Manual) 7, Eosinophils % (Manual) 2, Platelet Estimate Normal, RBC Morphology Normal, PT 10.7, INR 0.95, Sodium 137, Potassium 4.5, Chloride 108 H, Carbon Dioxide 24, Anion Gap 9.5, BUN 17, Creatinine 1.10, Estimated Creat Clear 167, Estimated GFR 77, Est GFR ( Amer) 93, Glucose 123 H, Lactate 1.0, Calcium 9.0, Magnesium 2.0, Total Bilirubin 0.7, AST 30, ALT 38, Alkaline Phosphatase 64, Total Protein 7.4, Albumin 4.2, Globulin 3.2, Albumin/Globulin Ratio 1.3, Lipase 97, Procalcitonin 0.088, HCV Ab SHRUTI w/Rflx PCR Qn Negative, HIV Ag/Ab Combo Qual Negative 02/28/25 20:25: Urine Color Yellow, Urine Appearance Clear, Urine pH 5.5, Ur Specific [place] 1.010, Urine Protein Negative, Urine Glucose (UA) Negative, Urine Ketones Negative, Urine Blood Negative, Urine Nitrate Negative, Urine Bilirubin Negative, Urine Urobilinogen 0.2, Ur Leukocyte Esterase Negative, Urine RBC None, Urine WBC None, Ur Squamous Epith Cells None, Urine Bacteria Trace 03/01/25 06:15: WBC 23.2 H*, RBC 4.86, Hgb 14.7, Hct 42.6, MCV 87.7, MCH 30.2, MCHC 34.5, RDW 15.3, Plt Count 256, MPV 10.1, Neut % (Auto) 88.4 H, Lymph % (Auto) 4.3 L, [place] % (Auto) 6.7, Eos % (Auto) 0.0 L, Baso % (Auto) 0.1, Neut # (Auto) 20.5 H, Lymph # (Auto) 1.0, [place] # (Auto) 1.6 H, Eos # (Auto) 0.0, Baso # (Auto) 0.0, Sodium 139, Potassium 4.2, Chloride 108 H, Carbon Dioxide 23, Anion Gap 12.2, BUN 13, Creatinine 1.10, Estimated Creat Clear 92, Estimated GFR 77, Est GFR ( Amer) 93, Glucose 106 H, Calcium 8.3 L I & O for Last 24 hours: Intake & Output 02/26/25 02/27/25 02/28/25 03/01/25 11:59 11:59 11:59 11:59 Intake Total 3280 / 3280 Output Total 1800 / 1800 Balance 1480 / 1480 Weight 293 lb 11.2 oz Constitutional Constitutional: no acute distress Comments: Somewhat slow to respond to questions *Routine Respiratory Exam Respiratory: Absent respiratory distress *Routine Cardiovascular Exam Cardiovascular: Present tachycardia (Mildly tachycardic) *Routine Abdominal Exam Comments: Dressing in place. No spreading cellulitis. Progress Note: A&P Assessment and plan (1) Meckel's diverticulum perforation: Status: Acute Assessment and plan: Stable postoperative day 1 (0.5) status post partial small bowel resection (Meckel's diverticulum) with primary anastomosis Continue nasogastric decompression for now Ambulation Remove Juárez catheter (2) Severe sepsis without septic shock: Status: Acute
[2025-03-01] MEDS: ENOXAPARIN 40MG/0.4ML SYRINGE 40 MG SUBCUT ×2 (09:42→20:13)
[2025-03-01 10:08] LABS: Lymphocytes % 5 % (10-50); Monocytes % 6 % (2-9); Neutrophils % 89 % (42-76); Platelet Estimate Normal; RBC Morphology Normal; Total Cells Counted 100
--- NOTE | 2025-03-01 11:06 | PC.NURSE ---
Patient ambulated 100 ft using a walker. Patient tolerated well
[2025-03-01] MEDS: MORPHINE 10MG/ML 30ML PCA IV (12:22)
--- NOTE | 2025-03-01 12:37 | EXP.ACUTE.PN ---
Subjective *Date: 03/01/25 *Time: 15:03 Interval history: Remains tachycardic this morning, still having pain in abdomen. Afebrile. No nausea or vomiting. NG remains in place. Complaining of some sore throat due to NG. Alert and oriented x 3. Necessitating 3 L of oxygen. Medical Exam Vital signs and Labs for Last 24 Hours: Vital Signs Temp Pulse Pulse Resp BP BP Pulse Ox 03/01/25 11:13 03/01/25 09:20 03/01/25 09:00 107 H 22 152/98 H 96 03/01/25 08:00 110 H 24 149/96 H 96 03/01/25 08:00 99.4 F 03/01/25 07:29 03/01/25 06:39 03/01/25 06:30 105 H 18 145/91 H 94 L 03/01/25 06:00 106 H 19 166/98 H 94 L 03/01/25 05:30 104 H 20 161/96 H 96 03/01/25 05:00 107 H 20 154/94 H 92 L 03/01/25 04:56 03/01/25 04:30 107 H 20 145/93 H 94 L 03/01/25 04:00 108 H 03/01/25 04:00 98.6 F 03/01/25 04:00 106 H 22 162/93 H 97 03/01/25 03:30 108 H 16 155/98 H 95 03/01/25 03:00 114 H 18 145/101 H 89 L 03/01/25 02:55 03/01/25 02:30 103 H 18 155/98 H 97 03/01/25 02:00 103 H 97 03/01/25 02:00 104 H 18 165/87 H 97 03/01/25 01:30 106 H 20 158/97 H 97 03/01/25 01:00 03/01/25 01:00 104 H 16 163/92 H 97 03/01/25 00:31 99 H 16 152/101 H 98 03/01/25 00:15 104 H 16 155/92 H 96 03/01/25 00:00 104 H 16 165/76 H 95 03/01/25 00:00 108 H 02/28/25 23:45 104 H 18 150/89 H 95 02/28/25 23:30 106 H 18 158/91 H 95 02/28/25 23:14 114 H 02/28/25 23:10 99 F 108 H 19 158/91 H 96 02/28/25 23:10 97.2 F L 106 H 16 149/92 H 96 02/28/25 23:00 97.2 F L 108 H 16 142/95 H 95 02/28/25 22:50 97.2 F L 108 H 16 142/95 H 95 02/28/25 22:46 97.2 F L 106 H 20 156/81 H 02/28/25 22:40 97.2 F L 107 H 16 156/86 H 94 L 02/28/25 21:11 110 H 98 02/28/25 20:15 98.6 F 103 H 16 167/87 H 97 02/28/25 20:02 98.3 F 107 H 30 H 148/81 H 02/28/25 19:41 106 H 32 H 148/81 H 97 02/28/25 18:40 98.1 F 85 18 133/73 98 O2 Del Method O2 Flow Rate 03/01/25 11:13 Nasal Cannula 3 03/01/25 09:20 Nasal Cannula 2 03/01/25 09:00 Nasal Cannula 2 03/01/25 08:00 Nasal Cannula 2 03/01/25 08:00 03/01/25 07:29 Nasal Cannula 2 03/01/25 06:39 Nasal Cannula 2 03/01/25 06:30 Nasal Cannula 2 03/01/25 06:00 Nasal Cannula 2 03/01/25 05:30 Nasal Cannula 2 03/01/25 05:00 Nasal Cannula 2 03/01/25 04:56 Nasal Cannula 2 03/01/25 04:30 Nasal Cannula 2 03/01/25 04:00 03/01/25 04:00 03/01/25 04:00 Nasal Cannula 2 03/01/25 03:30 Nasal Cannula 2 03/01/25 03:00 Room Air 03/01/25 02:55 Room Air 03/01/25 02:30 Nasal Cannula 2 03/01/25 02:00 Nasal Cannula 2 03/01/25 02:00 Nasal Cannula 2 03/01/25 01:30 Nasal Cannula 03/01/25 01:00 Nasal Cannula 2 03/01/25 01:00 Nasal Cannula 2 03/01/25 00:31 Nasal Cannula 2 03/01/25 00:15 Nasal Cannula 2 03/01/25 00:00 Nasal Cannula 2 03/01/25 00:00 02/28/25 23:45 Nasal Cannula 2 02/28/25 23:30 Nasal Cannula 2 02/28/25 23:14 02/28/25 23:10 Nasal Cannula 3 02/28/25 23:10 Nasal Cannula 2 02/28/25 23:00 Nasal Cannula 2 02/28/25 22:50 Nasal Cannula 2 02/28/25 22:46 02/28/25 22:40 Nasal Cannula 2 02/28/25 21:11 Nasal Cannula 2 02/28/25 20:15 Room Air 02/28/25 20:02 Room Air 02/28/25 19:41 02/28/25 18:40 Room Air Intake and Output 02/28/25 03/01/25 03/01/25 23:59 07:59 15:59 Intake Total 2300 / 2400 980 / 980 Output Total 650 / 650 1150 / 1400 250 / 1400 Balance 1650 / 1750 -170 / -420 -250 / -420 Intake: Intake, Total IV Amount 2300 / 2400 980 / 980 0.9 % Sodium Chloride 1000ML 1, 780 / 780 000 ml @ 125 mls/hr IV .Q8H [facility] Rx#:[id number] Piperacillin/Tazo 3.375 gm In 0 100 / 100 .9 % Sodium Chloride 50 ml @ 100 mls/hr IV ONCE ONE Rx#: [id number] Piperacillin/Tazo 4.5 gm In 0.9 100 / 100 % Sodium Chloride 100 ml @ 200 mls/hr IV Q6H [facility] Rx#: [id number] Output: Output, Urine Amount 650 / 650 250 / 250 Output, Urine Amount (Catheter) 850 / 850 Juárez 850 / 850 Output, Gastric Drainage Amount 300 / 300 Right Nare 300 / 300 Other: Number of Unmeasured Voids 0 0 0 Weight 133.22 kg Laboratory Results - last 24 hr 02/28/25 18:44: WBC 20.3 H*, RBC 5.13, Hgb 15.4, Hct 44.5, MCV 86.7, MCH 30.0, MCHC 34.6, RDW 15.0, Plt Count 313, MPV 9.6, Neut % (Auto) 74.9, Lymph % (Auto) 13.7, [place] % (Auto) 9.7 H, Eos % (Auto) 0.9, Baso % (Auto) 0.3, Neut # (Auto) 15.2 H, Lymph # (Auto) 2.8, [place] # (Auto) 2.0 H, Eos # (Auto) 0.2, Baso # (Auto) 0.1, Total Counted 100, Neutrophils % (Manual) 75, Lymphocytes % (Manual) 16, Monocytes % (Manual) 7, Eosinophils % (Manual) 2, Platelet Estimate Normal, RBC Morphology Normal, PT 10.7, INR 0.95, Sodium 137, Potassium 4.5, Chloride 108 H, Carbon Dioxide 24, Anion Gap 9.5, BUN 17, Creatinine 1.10, Estimated Creat Clear 167, Estimated GFR 77, Est GFR ( Amer) 93, Glucose 123 H, Lactate 1.0, Calcium 9.0, Magnesium 2.0, Total Bilirubin 0.7, AST 30, ALT 38, Alkaline Phosphatase 64, Total Protein 7.4, Albumin 4.2, Globulin 3.2, Albumin/Globulin Ratio 1.3, Lipase 97, Procalcitonin 0.088, HCV Ab SHRUTI w/Rflx PCR Qn Negative, HIV Ag/Ab Combo Qual Negative 02/28/25 20:25: Urine Color Yellow, Urine Appearance Clear, Urine pH 5.5, Ur Specific [place] 1.010, Urine Protein Negative, Urine Glucose (UA) Negative, Urine Ketones Negative, Urine Blood Negative, Urine Nitrate Negative, Urine Bilirubin Negative, Urine Urobilinogen 0.2, Ur Leukocyte Esterase Negative, Urine RBC None, Urine WBC None, Ur Squamous Epith Cells None, Urine Bacteria Trace 03/01/25 06:15: WBC 23.2 H*, RBC 4.86, Hgb 14.7, Hct 42.6, MCV 87.7, MCH 30.2, MCHC 34.5, RDW 15.3, Plt Count 256, MPV 10.1, Neut % (Auto) 88.4 H, Lymph % (Auto) 4.3 L, [place] % (Auto) 6.7, Eos % (Auto) 0.0 L, Baso % (Auto) 0.1, Neut # (Auto) 20.5 H, Lymph # (Auto) 1.0, [place] # (Auto) 1.6 H, Eos # (Auto) 0.0, Baso # (Auto) 0.0, Total Counted 100, Neutrophils % (Manual) 89 H, Lymphocytes % (Manual) 5 L, Monocytes % (Manual) 6, Platelet Estimate Normal, RBC Morphology Normal, Sodium 139, Potassium 4.2, Chloride 108 H, Carbon Dioxide 23, Anion Gap 12.2, BUN 13, Creatinine 1.10, Estimated Creat Clear 92, Estimated GFR 77, Est GFR ( Amer) 93, Glucose 106 H, Calcium 8.3 L I & O for Labs for Last 24 Hours: Intake & Output 02/26/25 02/27/25 02/28/25 03/01/25 23:59 23:59 23:59 23:59 Intake Total 2300 / 2400 980 / 980 Output Total 650 / 650 1400 / 1400 Balance 1650 / 1750 -420 / -420 Weight 133.22 kg Constitutional: Present mild distress, morbidly obese and cooperative Head: Present atraumatic and normocephalic ENT: Present normal exam Comment:: NG in right nare Respiratory: Present normal respiratory effort; Absent respiratory distress, rhonchi, stridor, wheezes or crackles Cardiac: Present Regular Rhythm and Tachycardia GI: Present soft, distention, tenderness and normal bowel sounds Extremities: Present normal inspection and full ROM Skin: Present intact; Absent erythema Neuro: Present Grossly Intact, alert, awake, oriented x 3 and moves all extremities Assessment and Plan *Assessment and plan (1) Severe sepsis without septic shock: Status: Acute Category: Medical Code(s): A41.9 - Sepsis, unspecified organism; R65.20 - Severe sepsis without septic shock (2) Meckel's diverticulum perforation: Status: Acute Category: Medical Code(s): Q43.0 - Meckel's diverticulum (displaced) (hypertrophic) (3) BMI 40.0-44.9, adult: Status: Acute Category: Medical Code(s): Z68.41 - Body mass index [BMI] 40.0-44.9, adult (4) Acute abdomen: Status: Acute Category: Medical Code(s): R10.0 - Acute abdomen Plan 34-year-old male who presented with abdominal pain. Found to have ruptured Meckel's diverticulum. Surgery consulted, taken to the OR for laparotomy. Admitted to medicine for further management. Continues to require inpatient care with broad-spectrum antibiotics. Problems addressed as follows: #Meckel's diverticulum perforation #Severe sepsis Meet sepsis criteria for leukocytosis with white cell count of 20, tachycardia. Perforated diverticulum noted on admission -Patient underwent exploratory laparotomy with small bowel resection and primary anastomosis overnight of 02/28 to 03/01. -White count elevated at 23 this morning. Hemoglobin 14.7. Kidney function normal with BUN 13, creatinine 1.1. -Repeat CBC, CMP, magnesium ordered for the morning -Discussed case with Dr. Boudreaux, continue NG to suction. N.p.o. pending resumption of bowel function. -Continue Zosyn 3.375 g every 6 hours for intra-abdominal infection. - GROCERY STORE COURTESY CLERK pump for pain management Morbid obesity complicates all aspects of his care Full code
--- NOTE | 2025-03-01 17:15 | PC.NURSE ---
Patient ambulated 150 ft with walker
--- NOTE | 2025-03-01 17:20 | PC.NURSE ---
Patient on 3LNC, patient stated nursery rn pump was managing pain. VS stable, heart rate elevated with exertion, patient does not take any medications at home. Patient able to sit in chair for most of shift.
--- NOTE | 2025-03-01 18:15 | PC.NURSE ---
21.5 mg cleared from play writer pump
[2025-03-01] MEDS: SODIUM CHLORIDE 0.9% 10ML VIAL 10 ML IV (20:13)
[2025-03-01] MEDS: PANTOPRAZOLE 40MG VIAL 40 MG IV (20:13)
[2025-03-02] VITALS (8 sets, daily range): BP systolic 134–164; BP diastolic 72–104; PULSE 76–133; RESP 16–25; TEMP 36.6–37; O2SAT 92–98; BMI 42.9
[2025-03-02] MEDS: 0.9 % SODIUM CHLORIDE 1000ML 1,000 ML 125 ML IV ×3 (00:43→22:30)
[2025-03-02] MEDS: PIPERACILLIN/TAZO 4.5 GM in 0.9 % SODIUM CHLORIDE 100 ML IV ×4 (05:21→22:30)
--- NOTE | 2025-03-02 06:48 | PC.NURSE ---
8mg cleared from creative writing teacher pump
--- NOTE | 2025-03-02 07:15 | PC.NURSE ---
rounded on pt, sitting up in chair. pt denies needs at this time. call light within reach
[2025-03-02 08:01] LABS: Basophils # 0.1 K/mm3 (0-0.2); Basophils % 0.3 % (0.1-2.0); Eosinophils % 0.2 % (0.1-12.0); Hematocrit 42.6 % (42.0-52.0); Hemoglobin 14.3 g/dL (14.1-18.0); Lymphocytes # 1.5 K/mm3 (0.7-4.5); Mean Corpuscular HGB Conc 33.6 g/dL (31.8-35.4); Mean Corpuscular Hemoglobin 29.9 pg (27.0-31.2); Mean Corpuscular Volume 88.9 fl (80-94); Mean Platelet Volume 10.3 fl (7.4-10.4); Monocytes # 1.5 K/mm3 (0.1-1.0); Monocytes % 9.2 % (1.7-9.3); Neutrophils # 13.3 K/mm3 (1.8-7.8); Neutrophils % 80.5 % (37.0-80.0); Nucleated Red Blood Cells # 0 10^3/uL; Nucleated Red Blood Cells % 0 %; Platelet Count 286 K/mm3 (142-424); Red Blood Count 4.79 M/mm3 (4.60-6.20); Red Cell Distribution Width 15.7 % (11.5-17.5); Red Cell Distribution Width-SD 51.2 fL; White Blood Count 16.6 K/mm3 (4.8-10.8)
[2025-03-02 08:05] LABS: Chloride 108 mmol/L (98-107); Potassium 4.1 mmoL/L (3.5-5.1); Sodium 137 mmol/L (136-145)
[2025-03-02 08:08] LABS: Anion Gap 11.1 mEq/L (5-15); Blood Urea Nitrogen 15 mg/dl (9-20); Calcium 8.7 mg/dl (8.4-10.2); Carbon Dioxide 22 mmol/L (22.0-30.0); Creatinine Clearance Estimated 101 mL/min (50-200); Estimated Glomerular Filt Rate 86 ml/min (>60); GFR (African American) 103 ML/MIN (>60); Glucose 106 mg/dl (74-100)
[2025-03-02] MEDS: ENOXAPARIN 40MG/0.4ML SYRINGE 40 MG SUBCUT ×2 (08:18→21:17)
--- NOTE | 2025-03-02 08:33 | PC.NURSE ---
dr banuelos at bedside
--- NOTE | 2025-03-02 09:47 | PC.NURSE ---
PT TRANSFERRED TO ROOM 214
--- NOTE | 2025-03-02 10:33 | P.PN_ITS ---
Subjective Patient reports: no new complaints and no flatus Narrative: Somewhat more talkative this morning. Exam Data for Last 24 hours Vital signs and Labs for Last 24 Hours: Temp Pulse Resp BP Pulse Ox O2 Del Method O2 Flow Rate 98.6 F 122 H 18 164/104 H 93 L Room Air 3 03/02/25 04:00 03/02/25 08:00 03/02/25 08:00 03/02/25 08:00 03/02/25 08:00 03/02/25 09:30 03/02/25 06:00 Laboratory Results - last 24 hr 03/02/25 06:35: WBC 16.6 H D, RBC 4.79, Hgb 14.3, Hct 42.6, MCV 88.9, MCH 29.9, MCHC 33.6, RDW 15.7, Plt Count 286, MPV 10.3, Neut % (Auto) 80.5 H, Lymph % (Auto) 9.0 L, [place] % (Auto) 9.2, Eos % (Auto) 0.2, Baso % (Auto) 0.3, Neut # (Auto) 13.3 H, Lymph # (Auto) 1.5, [place] # (Auto) 1.5 H, Eos # (Auto) 0.0, Baso # (Auto) 0.1, Sodium 137, Potassium 4.1, Chloride 108 H, Carbon Dioxide 22, Anion Gap 11.1, BUN 15, Creatinine 1.00, Estimated Creat Clear 101, Estimated GFR 86, Est GFR ( Amer) 103, Glucose 106 H, Calcium 8.7 I & O for Last 24 hours: Intake & Output 02/27/25 02/28/25 03/01/25 03/02/25 11:59 11:59 11:59 11:59 Intake Total 3280 / 3280 200 / 200 Output Total 2049 / 2049 1650 / 1650 Balance 1230 / 1230 -1450 / -1450 Weight 293 lb 11.2 oz 290 lb Microbiology Reports for the Last 24 Hours: Microbiology 02/28/25 19:31 Blood Blood Culture - Preliminary NO GROWTH AFTER 24 HOURS 02/28/25 19:32 Blood Blood Culture - Preliminary NO GROWTH AFTER 24 HOURS Constitutional Constitutional: no acute distress Comments: Somewhat slow to respond to questions *Routine Respiratory Exam Respiratory: Absent respiratory distress *Routine Cardiovascular Exam Cardiovascular: Present tachycardia (Mildly tachycardic) *Routine Abdominal Exam Comments: Incision clean, dry, and intact. No erythema. Progress Note: A&P Assessment and plan (1) Meckel's diverticulum perforation: Status: Acute Assessment and plan: Stable postoperative day 2 (1.5) status post partial small bowel resection (Meckel's diverticulum) with primary anastomosis Continue nasogastric decompression for now Await return of bowel function Continue to increase ambulation (2) Severe sepsis without septic shock: Status: Acute (3) BMI 40.0-44.9, adult: Status: Acute
--- NOTE | 2025-03-02 10:33 | EXP.ACUTE.PN ---
Subjective *Date: 03/02/25 *Time: 18:38 Interval history: Still no flatus or bowel movement. Stable on room air this morning. Denies chest pain. Still having abdominal pain. Encouraged deep breathing and incentive spirometry. Afebrile. Remains tachycardic. Medical Exam Vital signs and Labs for Last 24 Hours: Vital Signs Temp Pulse Pulse Resp BP Pulse Ox O2 Del Method 03/02/25 09:30 Room Air 03/02/25 08:00 120 H 03/02/25 08:00 122 H 18 93 L Room Air 03/02/25 08:00 118 H 18 164/104 H 92 L Room Air 03/02/25 06:48 93 L Room Air 03/02/25 06:47 Room Air 03/02/25 06:00 133 H 23 156/93 H 95 Nasal Cannula 03/02/25 05:00 Nasal Cannula 03/02/25 04:00 110 H 03/02/25 04:00 98.6 F 111 H 20 159/88 H 96 Nasal Cannula 03/02/25 03:00 Nasal Cannula 03/02/25 02:00 96 Nasal Cannula 03/02/25 02:00 109 H 25 H 155/97 H 97 Nasal Cannula 03/02/25 00:45 Nasal Cannula 03/02/25 00:00 110 H 03/02/25 00:00 97.9 F 109 H 25 H 156/87 H 95 Nasal Cannula 03/01/25 23:00 Nasal Cannula 03/01/25 22:00 113 H 22 153/95 H 96 Nasal Cannula 03/01/25 20:38 Nasal Cannula 03/01/25 20:00 120 H 03/01/25 20:00 120 H 95 Nasal Cannula 03/01/25 20:00 98 F 116 H 28 H 93 L Nasal Cannula 03/01/25 19:07 Nasal Cannula 03/01/25 18:41 Nasal Cannula 03/01/25 18:00 118 H 24 146/93 H 96 Nasal Cannula 03/01/25 17:00 Nasal Cannula 03/01/25 16:00 120 H 03/01/25 16:00 111 H 24 149/92 H 95 Nasal Cannula 03/01/25 16:00 98.5 F 03/01/25 15:00 Nasal Cannula 03/01/25 14:00 Nasal Cannula 03/01/25 14:00 106 H 22 164/76 H 94 L Nasal Cannula 03/01/25 13:10 Nasal Cannula 03/01/25 12:00 110 H 03/01/25 12:00 99.3 F 03/01/25 12:00 110 H 16 147/86 H 95 Nasal Cannula 03/01/25 11:13 Nasal Cannula O2 Flow Rate 03/02/25 09:30 03/02/25 08:00 03/02/25 08:00 03/02/25 08:00 03/02/25 06:48 03/02/25 06:47 03/02/25 06:00 3 03/02/25 05:00 3 03/02/25 04:00 03/02/25 04:00 2 03/02/25 03:00 3 03/02/25 02:00 3 03/02/25 02:00 3 03/02/25 00:45 3 03/02/25 00:00 03/02/25 00:00 3 03/01/25 23:00 3 03/01/25 22:00 3 03/01/25 20:38 3 03/01/25 20:00 03/01/25 20:00 3 03/01/25 20:00 3 03/01/25 19:07 3 03/01/25 18:41 3 03/01/25 18:00 3 03/01/25 17:00 3 03/01/25 16:00 03/01/25 16:00 3 03/01/25 16:00 03/01/25 15:00 3 03/01/25 14:00 3 03/01/25 14:00 3 03/01/25 13:10 3 03/01/25 12:00 03/01/25 12:00 03/01/25 12:00 3 03/01/25 11:13 3 Intake and Output 03/01/25 03/02/25 03/02/25 23:59 07:59 15:59 Intake Total 100 / 100 Output Total 500 / 2150 900 / 900 Balance -500 / -970 -800 / -800 Intake: Intake, Total IV Amount 100 / 100 Piperacillin/Tazo 4.5 gm In 0.9 100 / 100 % Sodium Chloride 100 ml @ 200 mls/hr IV Q6H [facility] Rx#:[id number] Output: Output, Urine Amount 800 / 800 Output, Urine Amount (Catheter) 200 / 1050 Juárez 200 / 1050 Output, Gastric Drainage Amount 300 / 600 100 / 100 Right Nare 300 / 600 100 / 100 Other: Number of Unmeasured Voids 0 Weight 131.542 kg Patient Weight 03/02/25 23:59 Weight 131.542 kg Laboratory Results - last 24 hr 03/02/25 06:35: WBC 16.6 H D, RBC 4.79, Hgb 14.3, Hct 42.6, MCV 88.9, MCH 29.9, MCHC 33.6, RDW 15.7, Plt Count 286, MPV 10.3, Neut % (Auto) 80.5 H, Lymph % (Auto) 9.0 L, [place] % (Auto) 9.2, Eos % (Auto) 0.2, Baso % (Auto) 0.3, Neut # (Auto) 13.3 H, Lymph # (Auto) 1.5, [place] # (Auto) 1.5 H, Eos # (Auto) 0.0, Baso # (Auto) 0.1, Sodium 137, Potassium 4.1, Chloride 108 H, Carbon Dioxide 22, Anion Gap 11.1, BUN 15, Creatinine 1.00, Estimated Creat Clear 101, Estimated GFR 86, Est GFR ( Amer) 103, Glucose 106 H, Calcium 8.7 I & O for Labs for Last 24 Hours: Intake & Output 02/27/25 02/28/25 03/01/25 03/02/25 23:59 23:59 23:59 23:59 Intake Total 2300 / 2400 1080 / 1180 100 / 100 Output Total 650 / 650 2150 / 2150 900 / 900 Balance 1650 / 1750 -1070 / -970 -800 / -800 Weight 133.22 kg 131.542 kg Microbiology Reports for the Last 24 Hours: Microbiology 02/28/25 19:31 Blood Blood Culture - Preliminary NO GROWTH AFTER 24 HOURS 02/28/25 19:32 Blood Blood Culture - Preliminary NO GROWTH AFTER 24 HOURS Constitutional: Present mild distress, morbidly obese and cooperative Head: Present atraumatic and normocephalic ENT: Present normal exam Comment:: NG in right nare Respiratory: Present normal respiratory effort; Absent respiratory distress, rhonchi, stridor, wheezes or crackles Cardiac: Present Regular Rhythm and Tachycardia GI: Present soft, distention, tenderness and normal bowel sounds Extremities: Present normal inspection and full ROM Skin: Present intact; Absent erythema Neuro: Present Grossly Intact, alert, awake, oriented x 3 and moves all extremities Assessment and Plan *Assessment and plan (1) Severe sepsis without septic shock: Status: Acute Category: Medical Code(s): A41.9 - Sepsis, unspecified organism; R65.20 - Severe sepsis without septic shock (2) Meckel's diverticulum perforation: Status: Acute Category: Medical Code(s): Q43.0 - Meckel's diverticulum (displaced) (hypertrophic) (3) BMI 40.0-44.9, adult: Status: Acute Category: Medical Code(s): Z68.41 - Body mass index [BMI] 40.0-44.9, adult (4) Acute abdomen: Status: Acute Category: Medical Code(s): R10.0 - Acute abdomen Plan 34-year-old male who presented with abdominal pain. Found to have ruptured Meckel's diverticulum. Surgery consulted, taken to the OR for laparotomy. Admitted to medicine for further management. Continues to require inpatient care with broad-spectrum antibiotics. Problems addressed as follows: #Meckel's diverticulum perforation #Severe sepsis Meet sepsis criteria for leukocytosis with white cell count of 20, tachycardia. Perforated diverticulum noted on admission -Patient underwent exploratory laparotomy with small bowel resection and primary anastomosis overnight of 02/28 to 03/01. - White count improved to 16.6. Hemoglobin 14.3. Kidney function normal with BUN 15, creatinine 1.0. Potassium 4 point -Repeat CBC, CMP, magnesium ordered for the morning -Discussed case with Dr. Boudreaux, continue NG to suction. N.p.o. pending resumption of bowel function. -Continue Zosyn 3.375 g every 6 hours for intra-abdominal infection. - INSURANCE VERIFICATION CLERK pump for pain management Morbid obesity complicates all aspects of his care Full code
--- NOTE | 2025-03-02 16:29 | PC.NURSE ---
pt up to the chair for majority of the shift. tolerating ra with sats >90%. NG to R nare remains to LWS. MVA REACTOR OPERATOR HEAD pump infusing per pt needs. per Dr. Weber, when pt passes gas NG can be placed to a bag & residuals checked q4. when residual is less than 100 NG can possibly remove ng. pt ambulated the halls with walker and standby assistance. no needs at this time. call light within reach.
[2025-03-02] MEDS: MORPHINE 10MG/ML 30ML PCA IV (18:05)
--- NOTE | 2025-03-02 18:32 | PC.NURSE ---
12.3ml morphine cleared from CORE DRILLING SUPERVISOR pump @ 2253
[2025-03-02] MEDS: PANTOPRAZOLE 40MG VIAL 40 MG IV (21:17)
[2025-03-03] VITALS (7 sets, daily range): BP systolic 131–159; BP diastolic 66–97; PULSE 72–121; RESP 14–20; TEMP 36.2–37.1; O2SAT 91–97; BMI 42.9
[2025-03-03] MEDS: PIPERACILLIN/TAZO 4.5 GM in 0.9 % SODIUM CHLORIDE 100 ML IV ×4 (04:30→22:33)
--- NOTE | 2025-03-03 06:05 | PC.NURSE ---
Pt accidentally pulled out NG tube while having labs drawn. v/s, ox4. Pt had 50ml out the whole shift from NG. Ab incision has had no drainage. pt denied pain. Pt has REVENUE CYCLE MANAGER pump for pain meds. Pt tolerating IV fluids and IV ABX well. Plan of care ongoing.
[2025-03-03] MEDS: 0.9 % SODIUM CHLORIDE 1000ML 1,000 ML 125 ML IV (06:32)
--- NOTE | 2025-03-03 07:40 | EXP.SURG.PN ---
Subjective Patient reports: no new complaints, feels better and flatus Narrative: Nasogastric tube accidentally dislodged yesterday evening. Patient has experienced no nausea or bloating since removal of nasogastric tube. Exam Data for Last 24 hours Vital signs and Labs for Last 24 Hours: Temp Pulse Resp BP Pulse Ox O2 Del Method O2 Flow Rate 98.4 F 113 H 14 159/97 H 96 Room Air 3 03/03/25 04:00 03/03/25 04:00 03/03/25 04:00 03/03/25 04:00 03/03/25 04:00 03/03/25 06:08 03/02/25 06:00 Laboratory Results - last 24 hr 03/02/25 06:35: WBC 16.6 H D, RBC 4.79, Hgb 14.3, Hct 42.6, MCV 88.9, MCH 29.9, MCHC 33.6, RDW 15.7, Plt Count 286, MPV 10.3, Neut % (Auto) 80.5 H, Lymph % (Auto) 9.0 L, [place] % (Auto) 9.2, Eos % (Auto) 0.2, Baso % (Auto) 0.3, Neut # (Auto) 13.3 H, Lymph # (Auto) 1.5, [place] # (Auto) 1.5 H, Eos # (Auto) 0.0, Baso # (Auto) 0.1, Sodium 137, Potassium 4.1, Chloride 108 H, Carbon Dioxide 22, Anion Gap 11.1, BUN 15, Creatinine 1.00, Estimated Creat Clear 101, Estimated GFR 86, Est GFR ( Amer) 103, Glucose 106 H, Calcium 8.7 I & O for Last 24 hours: Intake & Output 02/28/25 03/01/25 03/02/25 03/03/25 11:59 11:59 11:59 11:59 Intake Total 3280 / 3280 200 / 200 200 / 200 Output Total 2049 / 2049 1650 / 1650 500 / 500 Balance 1230 / 1230 -1450 / -1450 -300 / -300 Weight 293 lb 11.2 oz 290 lb 290 lb Microbiology Reports for the Last 24 Hours: Microbiology 02/28/25 19:32 Blood Blood Culture - Preliminary NO GROWTH AFTER 48 HOURS 02/28/25 19:31 Blood Blood Culture - Preliminary NO GROWTH AFTER 48 HOURS Constitutional Constitutional: no acute distress Comments: Somewhat slow to respond to questions *Routine Respiratory Exam Respiratory: Absent respiratory distress *Routine Cardiovascular Exam Cardiovascular: Present tachycardia (Mildly tachycardic) *Routine Abdominal Exam Comments: Incision clean, dry, and intact. No erythema. Progress Note: A&P Assessment and plan (1) Meckel's diverticulum perforation: Status: Acute Assessment and plan: Stable postoperative day 3 (2.5) status post partial small bowel resection (Meckel's diverticulum) with primary anastomosis Continue to increase ambulation Clear liquid diet (cautiously) Once patient is tolerating clear liquids his INTERNET MERCHANT can be discontinued (2) Severe sepsis without septic shock: Status: Acute (3) BMI 40.0-44.9, adult: Status: Acute (4) Acute abdomen: Status: Acute
[2025-03-03] MEDS: ENOXAPARIN 40MG/0.4ML SYRINGE 40 MG SUBCUT ×2 (08:34→21:17)
[2025-03-03 08:38] LABS: Basophils # 0.1 K/mm3 (0-0.2); Basophils % 0.5 % (0.1-2.0); Eosinophils # 0.2 Kmm3 (0.0-0.4); Eosinophils % 1.7 % (0.1-12.0); Hematocrit 39.5 % (42.0-52.0); Hemoglobin 13.1 g/dL (14.1-18.0); Lymphocytes # 1.4 K/mm3 (0.7-4.5); Lymphocytes % 10.8 % (10-50); Mean Corpuscular HGB Conc 33.2 g/dL (31.8-35.4); Mean Corpuscular Hemoglobin 29.2 pg (27.0-31.2); Mean Corpuscular Volume 88.2 fl (80-94); Mean Platelet Volume 9.7 fl (7.4-10.4); Monocytes # 1.2 K/mm3 (0.1-1.0); Monocytes % 9.4 % (1.7-9.3); Neutrophils % 76.1 % (37.0-80.0); Nucleated Red Blood Cells # 0 10^3/uL; Nucleated Red Blood Cells % 0 %; Platelet Count 289 K/mm3 (142-424); Red Blood Count 4.48 M/mm3 (4.60-6.20); Red Cell Distribution Width 15.3 % (11.5-17.5); Red Cell Distribution Width-SD 49.4 fL; White Blood Count 13.1 K/mm3 (4.8-10.8)
[2025-03-03 08:41] LABS: Chloride 110 mmol/L (98-107); Potassium 3.9 mmoL/L (3.5-5.1); Sodium 139 mmol/L (136-145)
[2025-03-03 08:44] LABS: Anion Gap 10.9 mEq/L (5-15); Blood Urea Nitrogen 15 mg/dl (9-20); Calcium 8.8 mg/dl (8.4-10.2); Carbon Dioxide 22 mmol/L (22.0-30.0); Creatinine Clearance Estimated 101 mL/min (50-200); Estimated Glomerular Filt Rate 86 ml/min (>60); GFR (African American) 103 ML/MIN (>60); Glucose 100 mg/dl (74-100); Magnesium 1.9 mg/dl (1.6-2.3)
--- NOTE | 2025-03-03 12:49 | EXP.ANES.II ---
[facility] Anesthesia Record Part II Anesthesia Record Part II Discharge Time: 23:10 Destination: Medical Surgical Department PACU nurse assessment reviewed?: Yes Patient Condition:: Good Anesthesia Complications:: None Swallowing reflex intact?: Yes Airway Patency: Patent Cyanosis?: No Blood Pressure: 149/92 SaO2: 96 Respiratory Rate: 16 Pulse Rate: 106 Temperature: 97.2 F Mental Status: Alert & Oriented Pain level:: 0 Nausea and/or vomitting:: None Intake, IV Amount: 0 Hydration: Adequate
--- NOTE | 2025-03-03 16:58 | PC.NURSE ---
pt resting in the chair at this time. fluids and abx given per dec. SHELLFISH BED WORKER infusing per pt needs. NG remained out this shift. no complaints of n/v/ abd discomfort. pt ambulated numerous times both in the room and halls with walker and tolerated well. midline incision remains intact and clean. no needs voiced at this time. states he feels much better today . call light within reach.
--- NOTE | 2025-03-03 18:52 | PC.NURSE ---
10 mg Morphine cleared from CHAMPAGNE MAKER pump @ 1850
--- NOTE | 2025-03-03 19:56 | EXP.ACUTE.PN ---
Subjective *Date: 03/03/25 *Time: 22:59 Interval history: NG came out overnight. Patient doing well this morning. No nausea. Stable on room air. Passed small amount of gas overnight. Medical Exam Vital signs and Labs for Last 24 Hours: Vital Signs Temp Pulse Pulse Resp BP Pulse Ox O2 Del Method 03/03/25 18:53 Room Air 03/03/25 16:56 Room Air 03/03/25 16:00 98.1 F 72 19 131/71 94 L Room Air 03/03/25 15:00 Room Air 03/03/25 13:00 Room Air 03/03/25 12:50 16 03/03/25 12:00 105 H 20 134/70 97 Room Air 03/03/25 12:00 80 03/03/25 11:00 Room Air 03/03/25 09:00 Room Air 03/03/25 08:00 120 H Room Air 03/03/25 08:00 98.8 F 103 H 19 142/66 H 97 Room Air 03/03/25 06:08 Room Air 03/03/25 05:00 Room Air 03/03/25 04:00 98.4 F 113 H 14 159/97 H 96 Room Air 03/03/25 03:00 Room Air 03/03/25 01:00 Room Air 03/03/25 00:00 98.3 F 121 H 16 135/80 91 L Room Air 03/02/25 23:00 Room Air 03/02/25 21:00 Room Air 03/02/25 20:00 Room Air 03/02/25 20:00 98.6 F 112 H 20 156/100 H 94 L Room Air Intake and Output 03/03/25 03/03/25 03/03/25 07:59 15:59 23:59 Intake Total 100 / 540 80 / 540 360 / 540 Output Total 50 / 1452 1400 / 1452 2 / 1452 Balance 50 / -912 -1320 / -912 358 / -912 Intake: Intake, Oral Amount 80 / 440 360 / 440 Intake, Total IV Amount 100 / 100 0 / 100 Piperacillin/Tazo 4.5 gm In 0.9 100 / 100 % Sodium Chloride 100 ml @ 200 mls/hr IV Q6H [facility] Rx#:[id number] Output: Output, Urine Amount 0 / 1402 1400 / 1402 2 / 1402 Output, Gastric Drainage Amount 50 / 50 Right Nare 50 / 50 Other: Number of Voids 1 0 Number of Unmeasured Voids 1 2 Weight 131.542 kg Patient Weight 03/03/25 23:59 Weight 131.542 kg Laboratory Results - last 24 hr 03/03/25 08:15: WBC 13.1 H, RBC 4.48 L, Hgb 13.1 L, Hct 39.5 L, MCV 88.2, MCH 29.2, MCHC 33.2, RDW 15.3, Plt Count 289, MPV 9.7, Neut % (Auto) 76.1, Lymph % (Auto) 10.8, [place] % (Auto) 9.4 H, Eos % (Auto) 1.7, Baso % (Auto) 0.5, Neut # (Auto) 10.0 H, Lymph # (Auto) 1.4, [place] # (Auto) 1.2 H, Eos # (Auto) 0.2, Baso # (Auto) 0.1, Sodium 139, Potassium 3.9, Chloride 110 H, Carbon Dioxide 22, Anion Gap 10.9, BUN 15, Creatinine 1.00, Estimated Creat Clear 101, Estimated GFR 86, Est GFR ( Amer) 103, Glucose 100, Calcium 8.8, Magnesium 1.9 I & O for Labs for Last 24 Hours: Intake & Output 02/28/25 03/01/25 03/02/25 03/03/25 23:59 23:59 23:59 23:59 Intake Total 2300 / 2400 1080 / 1180 200 / 300 540 / 540 Output Total 650 / 650 2150 / 2150 1350 / 1350 1452 / 1452 Balance 1650 / 1750 -1070 / -970 -1150 / -1050 -912 / -912 Weight 133.22 kg 131.542 kg 131.542 kg Microbiology Reports for the Last 24 Hours: Microbiology 02/28/25 19:32 Blood Blood Culture - Preliminary NO GROWTH AFTER 48 HOURS 02/28/25 19:31 Blood Blood Culture - Preliminary NO GROWTH AFTER 48 HOURS Constitutional: Present no acute distress, morbidly obese and cooperative Head: Present atraumatic and normocephalic ENT: Present normal exam Comment:: NG in right nare Respiratory: Present normal respiratory effort; Absent respiratory distress, rhonchi, stridor, wheezes or crackles Cardiac: Present Reg Rate and Rhythm GI: Present soft, distention, tenderness (Improving) and normal bowel sounds Extremities: Present normal inspection and full ROM Skin: Present intact; Absent erythema Neuro: Present Grossly Intact, alert, awake, oriented x 3 and moves all extremities Assessment and Plan *Assessment and plan (1) Severe sepsis without septic shock: Status: Acute Category: Medical Code(s): A41.9 - Sepsis, unspecified organism; R65.20 - Severe sepsis without septic shock (2) Meckel's diverticulum perforation: Status: Acute Category: Medical Code(s): Q43.0 - Meckel's diverticulum (displaced) (hypertrophic) (3) BMI 40.0-44.9, adult: Status: Acute Category: Medical Code(s): Z68.41 - Body mass index [BMI] 40.0-44.9, adult (4) Acute abdomen: Status: Acute Category: Medical Code(s): R10.0 - Acute abdomen Plan 34-year-old male who presented with abdominal pain. Found to have ruptured Meckel's diverticulum. Surgery consulted, taken to the OR for laparotomy. Admitted to medicine for further management. Continues to require inpatient care with broad-spectrum antibiotics. Problems addressed as follows: #Meckel's diverticulum perforation #Severe sepsis Meet sepsis criteria for leukocytosis with white cell count of 20, tachycardia. Perforated diverticulum noted on admission - Patient underwent exploratory laparotomy with small bowel resection and primary anastomosis overnight of 02/28 to 03/01. - White count improving to 13. Hemoglobin 13. Kidney function electrolytes normal. Repeat CBC, CMP, magnesium ordered for the morning. - Discontinue PATCHER WOOD WELDER pump, transition to Toradol IV 30 mg every 6 hours as needed - Discussed case with surgery, recommend cautious initiation of clears - Continue Zosyn 3.375 g every 6 hours for intra-abdominal infection. Morbid obesity complicates all aspects of his care Full code
[2025-03-03] MEDS: PANTOPRAZOLE 40MG VIAL 40 MG IV (21:17)
[2025-03-03] MEDS: SODIUM CHLORIDE 0.9% 10ML VIAL 10 ML IV (21:17)
[2025-03-04] VITALS: BP 126/75; PULSE 104; RESP 17; TEMP 37.1; O2SAT 96
[2025-03-04 04:00] VITALS: BP 157/98; PULSE 88; RESP 16; TEMP 37.1; O2SAT 94; BMI 41.0
--- NOTE | 2025-03-04 04:43 | PC.NURSE ---
patient had large BM
[2025-03-04] MEDS: HYDROCODONE/APAP 5/325 MG TABLET 1 TAB PO (04:45)
[2025-03-04] MEDS: PIPERACILLIN/TAZO 4.5 GM in 0.9 % SODIUM CHLORIDE 100 ML IV ×2 (04:46→09:42)
[2025-03-04 06:33] LABS: Basophils # 0.1 K/mm3 (0-0.2); Basophils % 0.6 % (0.1-2.0); Eosinophils # 0.4 Kmm3 (0.0-0.4); Eosinophils % 3.5 % (0.1-12.0); Hematocrit 37.7 % (42.0-52.0); Hemoglobin 12.7 g/dL (14.1-18.0); Lymphocytes # 1.4 K/mm3 (0.7-4.5); Lymphocytes % 13.6 % (10-50); Mean Corpuscular HGB Conc 33.7 g/dL (31.8-35.4); Mean Corpuscular Hemoglobin 29.5 pg (27.0-31.2); Mean Corpuscular Volume 87.7 fl (80-94); Mean Platelet Volume 9.6 fl (7.4-10.4); Monocytes # 1.1 K/mm3 (0.1-1.0); Monocytes % 10.5 % (1.7-9.3); Neutrophils % 69.3 % (37.0-80.0); Nucleated Red Blood Cells # 0 10^3/uL; Nucleated Red Blood Cells % 0 %; Platelet Count 311 K/mm3 (142-424); Red Cell Distribution Width 14.8 % (11.5-17.5); Red Cell Distribution Width-SD 47.7 fL
--- NOTE | 2025-03-04 06:36 | EXP.SURG.PN ---
Subjective Patient reports: feels better and bowel movement Exam Data for Last 24 hours Vital signs and Labs for Last 24 Hours: Temp Pulse Resp BP Pulse Ox O2 Del Method O2 Flow Rate 98.7 F 88 16 157/98 H 94 L Room Air 3 03/04/25 04:00 03/04/25 04:00 03/04/25 04:00 03/04/25 04:00 03/04/25 04:00 03/04/25 06:20 03/02/25 06:00 Laboratory Results - last 24 hr 03/03/25 08:15: WBC 13.1 H, RBC 4.48 L, Hgb 13.1 L, Hct 39.5 L, MCV 88.2, MCH 29.2, MCHC 33.2, RDW 15.3, Plt Count 289, MPV 9.7, Neut % (Auto) 76.1, Lymph % (Auto) 10.8, [place] % (Auto) 9.4 H, Eos % (Auto) 1.7, Baso % (Auto) 0.5, Neut # (Auto) 10.0 H, Lymph # (Auto) 1.4, [place] # (Auto) 1.2 H, Eos # (Auto) 0.2, Baso # (Auto) 0.1, Sodium 139, Potassium 3.9, Chloride 110 H, Carbon Dioxide 22, Anion Gap 10.9, BUN 15, Creatinine 1.00, Estimated Creat Clear 101, Estimated GFR 86, Est GFR ( Amer) 103, Glucose 100, Calcium 8.8, Magnesium 1.9 I & O for Last 24 hours: Intake & Output 03/01/25 03/02/25 03/03/25 03/04/25 11:59 11:59 11:59 11:59 Intake Total 3280 / 3280 200 / 200 200 / 200 640 / 640 Output Total 2049 / 2049 1650 / 1650 1900 / 1900 402 / 402 Balance 1230 / 1230 -1450 / -1450 -1700 / -1700 238 / 238 Weight 293 lb 11.2 oz 290 lb 290 lb 277 lb Constitutional Constitutional: no acute distress *Routine Respiratory Exam Respiratory: Absent respiratory distress *Routine Cardiovascular Exam Cardiovascular: Absent tachycardia *Routine Abdominal Exam Comments: Incision clean, dry, and intact. No erythema. Progress Note: A&P Assessment and plan (1) Meckel's diverticulum perforation: Status: Acute Assessment and plan: Stable postoperative day 4 (3.5) status post partial small bowel resection (Meckel's diverticulum) with primary anastomosis. Bowel function returned. Full liquid diet Okay from surgical standpoint for discharge home with close outpatient follow-up (2) BMI 40.0-44.9, adult: Status: Acute (3) Acute abdomen: Status: Acute
[2025-03-04 06:42] LABS: Albumin Level 3.5 g/dl (3.5-5.0); Chloride 109 mmol/L (98-107); Sodium 138 mmol/L (136-145)
[2025-03-04 06:43] LABS: Potassium 3.8 mmoL/L (3.5-5.1)
[2025-03-04 06:45] LABS: Alanine Aminotransferase 44 U/L (12-78); Albumin/Globulin Ratio 1.3 (1.1-1.8); Alkaline Phosphatase 64 U/L (38-126); Anion Gap 10.8 mEq/L (5-15); Aspartate Amino Transferase 44 U/L (17-59); Bilirubin,Total 0.6 mg/dl (0.2-1.3); Blood Urea Nitrogen 17 mg/dl (9-20); Carbon Dioxide 22 mmol/L (22.0-30.0); Creatinine Clearance Estimated 101 mL/min (50-200); Estimated Glomerular Filt Rate 86 ml/min (>60); GFR (African American) 103 ML/MIN (>60); Globulin 2.7 g/dL (1.3-3.2); Total Protein,Serum 6.2 g/dl (6.3-8.2)
[2025-03-04 06:46] LABS: Calcium 8.9 mg/dl (8.4-10.2); Glucose 97 mg/dl (74-100)
--- NOTE | 2025-03-04 07:55 | P.PN_ITS ---
Subjective *Date: 03/04/25 *Time: 07:55 Medical Exam Vital signs and Labs for Last 24 Hours: Vital Signs Temp Pulse Pulse Resp BP Pulse Ox O2 Del Method 03/04/25 06:20 Room Air 03/04/25 04:52 Room Air 03/04/25 04:00 98.7 F 88 16 157/98 H 94 L Room Air 03/04/25 03:00 Room Air 03/04/25 01:00 Room Air 03/04/25 00:00 98.7 F 104 H 17 126/75 96 Room Air 03/03/25 23:00 Room Air 03/03/25 21:00 Room Air 03/03/25 20:00 Room Air 03/03/25 20:00 98.5 F 97 H 16 154/96 H 96 Room Air 03/03/25 18:53 Room Air 03/03/25 16:56 Room Air 03/03/25 16:00 98.1 F 72 19 131/71 94 L Room Air 03/03/25 15:00 Room Air 03/03/25 13:00 Room Air 03/03/25 12:50 16 03/03/25 12:00 105 H 20 134/70 97 Room Air 03/03/25 12:00 80 03/03/25 11:00 Room Air 03/03/25 09:00 Room Air 03/03/25 08:00 120 H Room Air 03/03/25 08:00 98.8 F 103 H 19 142/66 H 97 Room Air Intake and Output 03/03/25 03/03/25 03/04/25 15:59 23:59 07:59 Intake Total 80 / 740 360 / 740 200 / 200 Output Total 1400 / 1652 202 / 1652 200 / 200 Balance -1320 / -912 158 / -912 0 / 0 Intake: Intake, Oral Amount 80 / 440 360 / 440 Intake, Total IV Amount 0 / 300 200 / 200 Piperacillin/Tazo 4.5 gm In 0.9 200 / 200 % Sodium Chloride 100 ml @ 200 mls/hr IV Q6H [facility] Rx#:[id number] Output: Output, Urine Amount 1400 / 1602 202 / 1602 200 / 200 Other: Number of Voids 1 0 Number of Unmeasured Voids 0 0 Number of Bowel Movements 1 Weight 125.645 kg Patient Weight 03/04/25 23:59 Weight 125.645 kg Laboratory Results - last 24 hr 03/03/25 08:15: WBC 13.1 H, RBC 4.48 L, Hgb 13.1 L, Hct 39.5 L, MCV 88.2, MCH 29.2, MCHC 33.2, RDW 15.3, Plt Count 289, MPV 9.7, Neut % (Auto) 76.1, Lymph % (Auto) 10.8, [place] % (Auto) 9.4 H, Eos % (Auto) 1.7, Baso % (Auto) 0.5, Neut # (Auto) 10.0 H, Lymph # (Auto) 1.4, [place] # (Auto) 1.2 H, Eos # (Auto) 0.2, Baso # (Auto) 0.1, Sodium 139, Potassium 3.9, Chloride 110 H, Carbon Dioxide 22, Anion Gap 10.9, BUN 15, Creatinine 1.00, Estimated Creat Clear 101, Estimated GFR 86, Est GFR ( Amer) 103, Glucose 100, Calcium 8.8, Magnesium 1.9 03/04/25 06:20: WBC 10.0, RBC 4.30 L, Hgb 12.7 L, Hct 37.7 L, MCV 87.7, MCH 29.5, MCHC 33.7, RDW 14.8, Plt Count 311, MPV 9.6, Neut % (Auto) 69.3, Lymph % (Auto) 13.6, [place] % (Auto) 10.5 H, Eos % (Auto) 3.5, Baso % (Auto) 0.6, Neut # (Auto) 7.0, Lymph # (Auto) 1.4, [place] # (Auto) 1.1 H, Eos # (Auto) 0.4, Baso # (Auto) 0.1, Sodium 138, Potassium 3.8, Chloride 109 H, Carbon Dioxide 22, Anion Gap 10.8, BUN 17, Creatinine 1.00, Estimated Creat Clear 101, Estimated GFR 86, Est GFR ( Amer) 103, Glucose 97, Calcium 8.9, Magnesium 2.0, Total Bilirubin 0.6, AST 44, ALT 44, Alkaline Phosphatase 64, Total Protein 6.2 L, Albumin 3.5, Globulin 2.7, Albumin/Globulin Ratio 1.3 I & O for Labs for Last 24 Hours: Intake & Output 03/01/25 03/02/25 03/03/25 03/04/25 23:59 23:59 23:59 23:59 Intake Total 1080 / 1180 200 / 300 540 / 740 200 / 200 Output Total 2150 / 2150 1350 / 1350 1652 / 1652 200 / 200 Balance -1070 / -970 -1150 / -1050 -1112 / -912 0 / 0 Weight 131.542 kg 131.542 kg 125.645 kg The patient's infection will respond to the chosen ABx?: Yes Is the patient receiving the right drug, dose, and route?: Yes Could a more targeted ABx be ordered?: No (WBC WNL NOW, AFEBRILE, BOWEL RESECTION.)
[2025-03-04 08:00] VITALS: BP 149/74; PULSE 97; RESP 16; TEMP 36.6; O2SAT 95
[2025-03-04] MEDS: ENOXAPARIN 40MG/0.4ML SYRINGE 40 MG SUBCUT (09:42)
--- NOTE | 2025-03-04 10:43 | EXP.DC.SUM ---
General Admission date:: 02/28/25 HPI HPI HPI: This is a 34-year-old male with past medical history of obesity and tobacco abuse who presents emergency department today with complaints of abdominal pain. He reports consistent abdominal pain that began today. States that it was generalized but significant to the right lower quadrant. He reports pain was consistent all day with acute worsening pain 1 hour prior to arrival. He reports nausea and vomiting with inability to tolerate oral intake. Denies any melena or bright red blood per rectum. Emergency Department notable for white blood cell count of 20. Stable vitals with low sinus tachycardia. CT imaging notable for outpouching of small bowel in the right side of the abdomen with inflammation and free air consistent with perforated acute Meckel's diverticulitis. Dr. Weber was consulted and patient was taken to the OR. He underwent exploratory laparotomy with small bowel resection with primary anastomosis. Postoperatively he is doing well NG tube in place, Juárez catheter in place. VOLUNTEER ASSISTANT pump on board for pain management. Vital signs stable. Hospital Course Hospital Course Hospital Course: Bo Wynn is a 34-year-old male who presented with abdominal pain. Found to have ruptured Meckel's diverticulum s/p small bowel resection with primary anastomosis. #Meckel's diverticulum perforation #Severe sepsis ? Meet sepsis criteria for leukocytosis with white cell count of 20, tachycardia. Perforated diverticulum noted on admission. - General Surgery consulted, s/p laparotomy with small bowel resection and primary anastomosis overnight of 02/28 to 03/01. ? Sepsis improved with Zosyn, transition to Augmentin for 5 more days. ? Discharged with Joffre, Augmentin. Will follow-up with general surgery within 1 week. Morbid obesity complicates all aspects of his care Exam Data for Last 24 hours Vital signs and Labs for Last 24 Hours: Temp Pulse Resp BP Pulse Ox O2 Del Method O2 Flow Rate 97.9 F 97 H 16 149/74 H 95 Room Air 3 03/04/25 08:00 03/04/25 08:00 03/04/25 08:00 03/04/25 08:00 03/04/25 08:00 03/04/25 09:00 03/02/25 06:00 Laboratory Results - last 24 hr 03/04/25 06:20: WBC 10.0, RBC 4.30 L, Hgb 12.7 L, Hct 37.7 L, MCV 87.7, MCH 29.5, MCHC 33.7, RDW 14.8, Plt Count 311, MPV 9.6, Neut % (Auto) 69.3, Lymph % (Auto) 13.6, [place] % (Auto) 10.5 H, Eos % (Auto) 3.5, Baso % (Auto) 0.6, Neut # (Auto) 7.0, Lymph # (Auto) 1.4, [place] # (Auto) 1.1 H, Eos # (Auto) 0.4, Baso # (Auto) 0.1, Sodium 138, Potassium 3.8, Chloride 109 H, Carbon Dioxide 22, Anion Gap 10.8, BUN 17, Creatinine 1.00, Estimated Creat Clear 101, Estimated GFR 86, Est GFR ( Amer) 103, Glucose 97, Calcium 8.9, Magnesium 2.0, Total Bilirubin 0.6, AST 44, ALT 44, Alkaline Phosphatase 64, Total Protein 6.2 L, Albumin 3.5, Globulin 2.7, Albumin/Globulin Ratio 1.3 I & O for Last 24 hours: Intake & Output 03/01/25 03/02/25 03/03/25 03/04/25 23:59 23:59 23:59 23:59 Intake Total 1080 / 1180 200 / 300 540 / 740 800 / 800 Output Total 2150 / 2150 1350 / 1350 1652 / 1652 200 / 200 Balance -1070 / -970 -1150 / -1050 -1112 / -912 600 / 600 Weight 131.542 kg 131.542 kg 125.645 kg Constitutional Constitutional: no acute distress *Routine HEENT Exam Head: Present normocephalic Eye: Present EOMI and PERRL ENT: Present mucous membranes moist *Routine Neck Exam Neck: Present supple; Absent lymphadenopathy *Routine Respiratory Exam Respiratory: Absent respiratory distress *Routine Cardiovascular Exam Cardiovascular: Absent tachycardia *Routine Abdominal Exam Abdominal: Present soft and normoactive bowel sounds; Absent tenderness Comments: Incision clean, dry, and intact. No erythema. *Routine Extremities Exam Extremities: Absent cyanosis, clubbing or edema *Routine Skin Exam Skin: Present warm; Absent rash *Routine Neurological Exam Neurological: Present alert and oriented X3 Results Data Completed and Pending Labs on day of discharge: Labs from last 24 hours 03/04/25 06:20 WBC 10.0 RBC 4.30 L Hgb 12.7 L Hct 37.7 L MCV 87.7 MCH 29.5 MCHC 33.7 RDW 14.8 Plt Count 311 MPV 9.6 Neut % (Auto) 69.3 Lymph % (Auto) 13.6 [place] % (Auto) 10.5 H Eos % (Auto) 3.5 Baso % (Auto) 0.6 Neut # (Auto) 7.0 Lymph # (Auto) 1.4 [place] # (Auto) 1.1 H Eos # (Auto) 0.4 Baso # (Auto) 0.1 Sodium 138 Potassium 3.8 Chloride 109 H Carbon Dioxide 22 Anion Gap 10.8 BUN 17 Creatinine 1.00 Estimated Creat Clear 101 Estimated GFR 86 Est GFR ( Amer) 103 Glucose 97 Calcium 8.9 Magnesium 2.0 Total Bilirubin 0.6 AST 44 ALT 44 Alkaline Phosphatase 64 Total Protein 6.2 L Albumin 3.5 Globulin 2.7 Albumin/Globulin Ratio 1.3 Preliminary micro results at discharge 02/28/25 19:32 Blood Culture - Preliminary Blood NO GROWTH AFTER 48 HOURS 02/28/25 19:31 Blood Culture - Preliminary Blood NO GROWTH AFTER 48 HOURS DS: Diagnosis Discharge Diagnosis (1) Meckel's diverticulum perforation: Status: Acute Code(s): Q43.0 - Meckel's diverticulum (displaced) (hypertrophic) (2) BMI 40.0-44.9, adult: Status: Acute Code(s): Z68.41 - Body mass index [BMI] 40.0-44.9, adult (3) Acute abdomen: Status: Acute Code(s): R10.0 - Acute abdomen Meds Home Medications and Allergies Home Medications ?Medication ?Instructions ?Recorded ?Confirmed ?Type amoxicillin 500 mg-potassium 1 tab PO TID 5 days #15 tabs 03/04/25 Rx clavulanate 125 mg tablet (Augmentin) hydrocodone 5 mg-acetaminophen 325 1 tab PO Q6HP PRN pain 3 days #12 03/04/25 Rx mg tablet tabs New Prescriptions to Start Prescriptions: amoxicillin-pot clavulanate [Augmentin] Marito Santiago hydrocodone-acetaminophen Marito Santiago Allergies Allergy/AdvReac Type Severity Reaction Status Date / Time No Known Allergies Allergy Verified 05/23/22 11:58 Discharge Plan Disposition Patient Disposition: Home, Self-Care Condition: Fair Discharge Order Discharge Orders: Discharge Order (Routine); Ordered 03/04/25 Ordered By: Marito Santiago Follow up Plan Follow up with: Jasmin Lorenzo PA [Referring] - 03/07/25 10:00 am (in [place] office ) Man Weber MD [Staff Physician] - 03/07/25 10:30 am Prescriptions/Medication Reconciliation: New hydrocodone-acetaminophen 5-325 mg tablet 1 tab PO Q6HP PRN (Reason: pain) 3 Days Qty: 12 0RF amoxicillin-pot clavulanate [Augmentin] 500-125 mg tablet 1 tab PO TID 5 Days Qty: 15 0RF Problem Reconciliation Problems Reviewed?: Yes Patient Discharge Instructions ACTIVITY: Ambulate as tolerated and No heavy lifting DIET: advance to your usual diet Patient Instructions: Meckel Diverticulum, DI for Surgical Site Infection, Stop Light Infection Print Language: [place]ien Providers Primary Care Provider: Provider,Referral Admit Provider: Jordy Burk Attending Provider: Jordy Burk
--- NOTE | 2025-03-06 10:41 | SW/DCPLANNER ---
Spoke with patient on the phone. Patient stated that he is doing well. Patient stated that he is aware of his upcoming appointments and that the one had to get changed due to conflict of schedule. Patient stated that [facility] Patient stated that he has no concerns or questions at this time. Joslyn Shabazz
== END 2025-03-04 12:08 | disposition home or self-care (01) | DRG 854 ==
LOC: ER 19:35 → SDC 20:57 → 2ND 21:07
PROVIDERS: Physician Assistant; Surgery; Admitting Provider Internal Medicine Adolescent Medicine; Emergency Provider Student in an Organized Health Care Education/Training Program; Visit Provider Internal Medicine Adolescent Medicine
PROC: 0DB80ZX Excision of Small Intestine, Open Approach, Diagnostic (ICD-10-PCS; CPT 49000; principal; 2025-02-28 20:00)
DX: A41.9 Sepsis, unspecified organism (principal); Z68.41 Body mass index [BMI] 40.0-44.9, adult; Q43.0 Meckel's diverticulum (displaced) (hypertrophic); E66.01 Morbid (severe) obesity due to excess calories; F17.210 Nicotine dependence, cigarettes, uncomplicated
CPT/HCPCS: 36415; 74177; 80048; 80053; 81001; 83605; 83690; 83735; 84145; 85007; 85025; 85610; 86803; 87040; 87389; 93005; 99291; J3490; J0131; J0330; J1100; J1171; J1335; J1650; J1885; J2250; J2270; J2405; J2543; J3010; J7030; J7120; Q9967